=== PATIENT | male | born 1940 | race Caucasian/White ===

== ENCOUNTER 2016-06-10 10:37 | Outpatient (CLI) | payer MEDICARE, OTHER ==
[~2016-06-10] VITALS: Ht 182.9 cm; Wt 98.4 kg
[~2016-06-10 10:37] MED LIST: COREG 3.1253.125 MG PO; COUMADIN10 MG PO; FOLIC ACID1 MG PO; IMDUR30 MG PO; KLOR-CON M2020 MEQ PO; LASIX40 MG PO; LISINOPRIL2.5 MG PO; NEURONTIN 300300 MG PO; PLAVIX75 MG PO
[2016-06-10] MEDS ORDERED: COUMADIN5 MG PO (11:15)
[2016-06-10] MEDS ORDERED: COUMADIN3 MG PO (11:15)
[2016-06-10] MEDS ORDERED: ULTRAM50 MG (11:27)
[2016-06-10] MEDS ORDERED: NITROSTAT0.4 MG SL (11:28)
[2016-06-10 12:02] LABS: BASOPHILS 0.5 % (0.0-2.0); EOSINOPHILS 2.7 % (0-7); HEMATOCRIT 46.2 % (42.0-54.0); HEMOGLOBIN 14.8 g/dL (13.5-17.5); IMMATURE GRANULOCYTES 0.2 % (0-5); LYMPHOCYTES 30.5 % (15-50); MCH 32.3 pg (26.0-34.0); MCV 100.9 fL (80.0-100.0); MEAN PLATELET VOLUME 10.3 fL (7.4-10.4); MONOCYTES 11.1 % (2-11); PLATELET COUNT 100 10x3/uL (130-400); RBC 4.58 10x6/uL (4.20-6.10); RDW 16.4 % (11.5-14.5); WBC 4.1 10x3/uL (4.8-10.8)
[2016-06-10 12:14] VITALS: BP 108/73; Ht 182.9 cm; Wt 98.4 kg
[2016-06-10 12:25] LABS: ANION GAP 9.8 mmol/L (8-16); CALCIUM 9.1 mg/dL (8.5-10.1); CARBON DIOXIDE 32.5 mmol/L (21.0-32.0); CREATININE - SERUM 1.5 mg/dL (0.6-1.3); POTASSIUM - SERUM 5.3 mmol/L (3.5-5.1)
--- NOTE | 2016-06-10 12:43 | NUR ---
6904 DR. ARTHUR BEEPED. CALL RETURNED. REPORT OF ABNORMAL LAB: GLUCOSE, BUN, CR, K+, & PLATELETS, DR. ARTHUR STATES WILL JUST OPEN UP IV FLUIDS. Maximus WEBER R.N.
[2016-06-10 13:14] LABS: INR 3.3 (0.85-1.17); PROTIME 33.9 SECONDS (11.6-15.0)
== END 2016-06-10 13:47 | disposition home or self-care (01) ==
LOC: D.CATH 10:37
PROVIDERS: Internal Medicine Cardiovascular Disease
DX: I25.10 Atherosclerotic heart disease of native coronary artery without angina pectoris (principal); R06.02 Shortness of breath; I50.9 Heart failure, unspecified; Z01.810 Encounter for preprocedural cardiovascular examination; Z01.811 Encounter for preprocedural respiratory examination; Z01.812 Encounter for preprocedural laboratory examination

== ENCOUNTER 2016-06-24 10:39 | Outpatient (CLI) | payer MEDICARE, OTHER ==
[2016-06-24] VITALS (10 sets, daily range): BP systolic 107–128; BP diastolic 63–80; Ht 182.9 cm; Wt 100.9 kg
[~2016-06-24] VITALS: Ht 182.9 cm; Wt 100.9 kg
--- NOTE | ~2016-06-24 | HEMODYNAMI ---
PATIENT:YARI MCKEON MEDICAL RECORD: [id number] : 42 [id number] ADMISSION DATE: 06/24/16 Generatedon:06/25/20168:14 Patient name: YARI MCKEON Patient #: [id number] : 1940 Date of study: 06/24/2016 Page: Of Hemodynamic Procedure Report Patient Data Patient Demographics Procedure consent was obtained First Name: YARI Gender: Male Last Name: LINDA : 1940 [facility] Initial: HAIR Age: 75 year(s) Patient #: [id number] Race: SSN: [id number] Additional ID: [id number] Contact details Address: [address] [place] [address] State: [place] City: [place] Zip code: [address] Past Medical History Allergies: No known allergies Admission Admission Data Admission Date: 06/24/2016 Admission Time: 10:39 Arrival Date: 06/24/2016 Arrival Time: 13:00 Admit Source: Other Insurance Payor: Medicare Room #: D.2130 Height (in.): 72 BSA: 2.26 (m2) Height (cm.): 182.88 BMI: 31.33 (kg/m2) Weight (lbs.): 231 Weight (kg.): 104.78 Lab Results Lab Result Date: 06/24/2016 Lab Result Time: 0:00 Biochemistry Name Units Result Min Max BUN mg/dl 28 --(----)-* 7 18 Creatinine mg/dl 1.8 --(----)-* 0.6 1.3 CBC Name Units Result Min Max Hemoglobin g/dl 14.4 --(*---)-- 13.5 17.5 Procedure Procedure Types Cath Procedure Diagnostic Procedure LHC LH w/Coronaries PCI Procedure Coronary Stent Initial x2 Miscellaneous Procedures Moderate Sedation up to 45 minutes Procedure Description Procedure Date Procedure Date: 06/24/2016 Procedure Start Time: 14:01 Procedure End Time: 15:22 Procedure Staff Name Function Brooke Rodriguez RT Monitor Brooke Ryne RT Scrub Dayday Porras RN Nurse Mickey Leigh RT Scrub Alexsandra Sultana RN Nurse Akin Barbosa MD Performing Physician Indication Angina Procedure Data Cath Procedure Fluoroscopy Diagnostic fluoroscopy Total fluoroscopy Time: time: 13.3 min 13.3 min Diagnostic fluoroscopy Total fluoroscopy dose: dose: 2368 mGy 2368 mGy Contrast Material Contrast Material Type Amount (ml) Isovue 300 219 Entry Location Entry Primary Successful Side Size Upsize Upsize Entry Closure Succes sful Closure Location (Fr) 1 (Fr) 2 (Fr) Remarks Device Remarks Femoral Right 5 Fr 6 Fr Exoseal artery Short Estimated blood loss: 10 ml Diagnostic catheters Device Type Used For End Catheter Placement Cordis 5Fr JL 4.0 Left Coronary Catheter (MP) Angiography Cordis Infinity 5Fr JL 5 Left Coronary catheter Angiography Cordis 5Fr 3DRC Catheter Right Coronary (MP) Angiography Cordis 5Fr Pigtail LV Angiography Catheter (MP) Procedure Complications No complications Procedure Medications Medication Administration Route Dosage Oxygen NC 2 l/min Lidocaine 2% added to field 20 Heparin Flush Bag added to field 2 bags (1000units/500ml NS) 0.9% NaCl I.V. 100 ml/hr Versed I.V. 1 mg Fentanyl I.V. 50 mcg Versed I.V. 1 mg Fentanyl I.V. 50 mcg Heparin Bolus I.V. 8000 units Plavix P.O. 600 mg Hemodynamics Rest BSA: 2.26 (m2) HGB: 14.4 (g/dl) O2 Consumption: Estimated: 261.09 (ml/min) O2 Co nsumption indexed: Estimated:115.53 (ml/min/m) Heart Rate: 71 (bpm) Pressure Samples Time Site Value (mmHg) Purpose Heart Use Rate(bpm) 14:16 LV 103/34,37 EDP 83 14:17 LV 103/17,16 Pullback 89 14:17 AO 102/70(83) Pullback 89 Gradients Valve Time Site 1 Site 2 Mean SEP/DFP Peak To Heart Use (mmHg) (sec/min) Peak Rate (mmHg) (bpm) Aortic 14:17 LV AO 3 14 1 89 103/17,16 102/70(83) Calculations Valve P-P Mean Valve Index Valve Source Name Gradient Area Flow (cm2) Aortic 1 3 1 3 Snapshots Pre Cath Intra NCS Post Cath Vital Signs Time Heart Resp SPO2 NIBP Rhythm Pain Sedation Rate (ipm) (%) (mmHg) Status Level (bpm) 13:40:10 67 17 96 105/57(74) A-Fib 0 (11) 10(A) , No pain 13:44:12 76 19 95 113/76(91) A-Fib 0 (11) 10(A) , No pain 13:48:16 80 17 98 107/80(91) A-Fib 0 (11) 10(A) , No pain 13:52:13 85 15 96 112/75(87) A-Fib 0 (11) 10(A) , No pain 13:56:17 82 15 94 104/78(93) A-Fib 0 (11) 10(A) , No pain 14:00:18 75 16 96 115/79(89) A-Fib 0 (11) 10(A) , No pain 14:04:24 75 15 94 110/76(88) A-Fib 0 (11) 9(A) , No pain 14:08:30 86 15 94 102/70(95) A-Fib 0 (11) 9(A) , No pain 14:12:32 83 16 94 101/74(86) A-Fib 0 (11) 9(A) , No pain 14:16:33 79 16 94 110/71(82) A-Fib 0 (11) 9(A) , No pain 14:20:37 76 18 93 102/77(86) A-Fib 0 (11) 9(A) , No pain 14:24:39 84 18 92 105/69(83) A-Fib 0 (11) 9(A) , No pain 14:28:42 78 19 92 99/72(85) A-Fib 0 (11) 9(A) , No pain 14:32:44 93 17 93 101/70(92) A-Fib 0 (11) 9(A) , No pain 14:36:46 88 16 93 105/75(82) A-Fib 0 (11) 9(A) , No pain 14:40:50 90 18 94 108/72(76) A-Fib 0 (11) 9(A) , No pain 14:44:55 86 18 93 112/66(86) A-Fib 0 (11) 9(A) , No pain 14:49:03 93 19 94 99/65(86) A-Fib 0 (11) 9(A) , No pain 14:53:03 76 18 94 108/78(95) A-Fib 0 (11) 9(A) , No pain 14:56:42 81 16 95 100/75(90) A-Fib 0 (11) 9(A) , No pain 15:00:42 84 17 96 104/76(91) A-Fib 0 (11) 9(A) , No pain Medications Time Medication Route Dose Verified Delivered Reason Notes Effectiveness by by 13:45:40 Oxygen NC 2 Akin Buffie used for l/min Kristian Sultana RN procedure 13:45:48 Lidocaine 2% added 20ml Akin Akin for local to vial Kristian Barbosa MD anesthetic field 13:45:54 Heparin Flush added 2 Akin Akin used for Bag to bags Kristian Barbosa MD procedure (1000units/500ml field NS) 13:46:03 0.9% NaCl I.V. 100 Akin Buffie Per physician ml/hr Kristian Sultana RN 13:57:44 Versed I.V. 1 mg Akin Buffie for sedation Kristian Sultana RN 13:57:50 Fentanyl I.V. 50 Akin Buffie for sedation mcg Kristian Sultana RN 14:06:19 Versed I.V. 1 mg Akin Buffie for sedation Kristian Sultana RN 14:06:24 Fentanyl I.V. 50 Akin Buffie for sedation mcg Kristian Sultana RN 14:23:19 Heparin Bolus I.V. 8,000 Akin Buffie for verifi ed units Kristian Sultana RN anticoagulation with dr barbosa. 14:55:09 Plavix P.O. 600 Akin Buffie for mg Kristian Sultana RN anticoagulation Procedure Log Time Note 13:00:18 Alexsandra Sultana RN sent for patient. Start room use. 13:05:57 Informed consent obtained and on chart 13:06:06 Diagnostic Cath Status : Elective 13:06:34 Indication : Angina 13:06:48 Admit Source: Other 13:06:56 Arrival Date: 06/24/2016 1:00:00 PM 13:07:03 Insurance Payor : Medicare 13:07:13 Patient Height : 72 inches 13:07:18 Patient Weight : 231 lbs 13:10:06 Lab Result : Hemoglobin 14.4 g/dl 13:10:06 Lab Result : Creatinine 1.8 mg/dl 13:10:06 Lab Result : BUN 28 mg/dl 13:15:25 Time tracking: Regular hours 13:15:31 Plan of Care:Hemodynamics will remain stable., Cardiac rhythm will remain stable., Comfort level will be maintained., Respiratory function will remain adequate., Patient/ family verbilizes understanding of procedure., Procedure tolerated without complication., Recovers from procedure without complications.. 13:33:32 Patient received from Outpatients to CCL 1 Alert and oriented. Tansferred to table in Supine position. 13:33:33 Correct patient and procedure confirmed by team. 13:33:33 Warm blankets applied, and bel hugger turned on for patient comfort. 13:33:38 ECG and BP/O2 sat monitors applied to patient. 13:35:51 Full Disclosure recording started 13:39:03 Vital chart was started 13:41:15 Rhythm: atrial fibrillation 13:41:31 H&P Date Dictated: 05/27/2016 Within 30 days and on chart., H&P Addendum completed by physician on day of procedure. (MUST COMPLETE FOR ALL OUTPATIENTS). 13:41:32 Pre-procedure instructions explained to patient. 13:41:33 Pre-op teaching completed and patient verbalized understanding. 13:41:34 Family in patients room. 13:41:44 Patient NPO since Midnight. 13:41:59 Patient allergic to No known allergies 13:42:03 Is the patient allergic to Iodine/contrast media? No. 13:42:05 Is patient on blood thinner?Yes 13:42:12 ACC The patient was administered the following blood thiners within the last 24 hours: None 13:42:15 Patient diabetic? No. 13:42:21 Previous problem with sedation/anesthesia? No ? 13:42:22 Snore? Yes 13:42:23 Sleep apnea? No 13:42:24 Deviated septum? No 13:42:25 Opens mouth fully? Yes 13:42:26 Sticks out tongue? Yes 13:42:28 Airway obstruction? No ? 13:42:32 Dentures? Yes Out 13:42:38 Pre procedure: right dorsailis pedis pulse Doppler 13:42:43 Patient pain scale 0/10 ?. 13:42:48 IV patent on arrival in left hand with 0.9% NaCl at O. 13:42:52 Lab results completed and on chart. 13:42:56 Right groin area was prepped with chlora-prep and draped in sterile fashion 13:42:57 Sharps counted by scrub and verified by R.N. 13:42:57 Alarms reviewed by R. N. 13:44:27 Use device set Femoral Dx 13:44:28 Bag Decanter opened to sterile field. 13:44:28 Acist Syringe opened to sterile field. 13:44:29 Medline Cath Pack opened to sterile field. 13:44:30 St Thong 260cm J .035 wire opened to sterile field. 13:44:30 Terumo 5Fr [place] Sheath opened to sterile field. 13:44:31 Acist Hand Control opened to sterile field. 13:44:32 Cordis Infinity 5Fr Multipack catheter opened to sterile field. 13:44:32 Acist Manifold opened to sterile field. 13:44:34 Tegaderm 4 x 4 opened to sterile field. 13:45:40 Oxygen 2 l/min NC was given by Alexsandra Sultana RN; used for procedure; 13:45:48 Lidocaine 2% 20ml vial added to field was given by Akin Barbosa MD; for local anesthetic; 13:45:54 Heparin Flush Bag (1000units/500ml NS) 2 bags added to field was given by Akin Barbosa MD; used for procedure; 13:46:03 0.9% NaCl 100 ml/hr I.V. was given by Alexsandra Sultana RN; Per physician; 13:47:26 Baseline sample Acquired. 13:54:21 Zero performed for pressure channel P1 13:57:18 Final Timeout: patient, procedure, and site verified with staff and physician. All members of the team are in agreement. 13:57:20 Right groin site verified by team. 13:57:23 Physical assessment completed. ASA score P 2 - A patient with mild systemic disease as per Akin Barbosa MD. 13:57:27 Sedation plan: IV Moderate Sedation Versed, Fentanyl 13:57:44 Versed 1 mg I.V. was given by Buffie Sultana RN; for sedation; 13:57:50 Fentanyl 50 mcg I.V. was given by Alexsandra Sultana RN; for sedation; 14:01:12 Procedure started. 14:01:42 Local anesthetic to right femoral artery with Lidocaine 2% by Akin Barbosa MD.INITIAL ACCESS ONLY 14:06:19 Versed 1 mg I.V. was given by Alexsandra Sultana RN; for sedation; 14:06:24 Fentanyl 50 mcg I.V. was given by Alexsandra Sultana RN; for sedation; 14:07:04 A 5 Fr sheath was inserted into the Right Femoral artery 14:07:31 A Cordis 5Fr JL 4.0 Catheter (MP) was advanced over the wire and used for Left Coronary Angiography. 14:08:51 Catheter removed. 14:09:48 A Cordis Infinity 5Fr JL 5 catheter was advanced over the wire and used for Left Coronary Angiography. 14:13:28 Catheter removed. 14:13:51 A Cordis 5Fr 3DRC Catheter (MP) was advanced over the wire and used for Right Coronary Angiography. 14:15:20 Catheter removed. 14:16:16 A Cordis 5Fr Pigtail Catheter (MP) was advanced over the wire and used for LV Angiography. 14:16:48 LV gram done using BLACKWELL 14:16:50 LV hemodynamics recorded. 14:16:53 Injector settings: Ml/sec: 10, Volume: 20, 14:17:30 EF : 15 % 14:17:45 Catheter removed. 14:18:06 PetBox BasixCompak Inflation Kit opened to sterile field. 14:18:06 White BMW [place] 2 J-tip 300cm 0.014 guide wir opened to sterile field. 14:18:19 High Pressure Extension Tubing (Kristian) opened to sterile field. 14:18:30 Cordis 6FR XBLAD 4.0 guide catheter opened to sterile field. 14:20:12 Terumo 6Fr [place] Sheath opened to sterile field. 14:21:00 Sheath upsized to a 6 Fr Short. 14:22:02 6 Fr XBLAD 4.0 guide catheter was inserted over the wire 14:23:19 Heparin Bolus 8,000 units I.V. was given by Alexsandra Sultana RN; for anticoagulation; verified with dr barbosa. 14:30:32 BMW wire advanced. 14:32:02 Inflation number: 1 A [place] Sci Hinds 2.0 X 15 balloon was prepped and advanced across the Ramus, then inflated to 10 SUYAPA for 0:14 (min:sec). 14:32:27 Inflation number: 2 The [place] Sci Hinds 2.0 X 15 balloon was reinflated across the Ramus, to 10 SUYAPA for 0:13 (min:sec). 14:33:28 Balloon removed over the wire. 14:36:16 Inflation Number: 3 A Medtronic Integrity 2.25 X 18 stent was prepped and advanced across the Ramus. The stent was deployed at 13 SUYAPA for 0:17 (min:sec). 14:37:33 Stent catheter was removed intact over wire. 14:37:37 Wire removed. 14:37:45 [place] Sci Luge Straight 300cm 0.014 guide wire opened to sterile field. 14:37:58 Luge to Diag wire advanced. 14:43:03 Inflation number: 1 The stent balloon was then re-inflated across the 1st Diag to 8 SUYAPA for 0:00 (min:sec). 14:43:28 Inflation number: 2 The stent balloon was then re-inflated across the 1st Diag to 10 SUYAPA for 0:10 (min:sec). 14:43:47 Inflation number: 3 The stent balloon was then re-inflated across the 1st Diag to 10 SUYAPA for 0:10 (min:sec). 14:48:39 Inflation Number: 4 A Medtronic Integrity 2.25 X 14 stent was prepped and advanced across the 1st Diag. The stent was deployed at 12 SUYAPA for 0:27 (min:sec). 14:49:26 Stent catheter was removed intact over wire. 14:49:27 Wire removed. 14:49:28 Guide catheter removed. 14:49:39 Cordis 6Fr Exoseal opened to sterile field. 14:50:59 Sheath removed intact; hemostasis achieved with Exoseal to the Right Femoral artery. 14:51:13 Procedure ended.(Physican Out) :51:28 Fluoroscopy time 13.30 minutes. 14:51:34 Fluoroscopy dose: 2368 mGy 14:51:34 Flurop Dose total: 2368 14:51:38 Contrast amount:Isovue 300 219ml. 14:51:40 Sharps counted by scrub and verified by R.N. 14:51:42 Insertion/operative site no bleeding no hematoma. 14:51:46 Post-op/insertion site Right Femoral artery dressed using a 4 x 4 and Tegaderm. 14:51:49 Post right femoral artery:stable, clean and dry 14:51:51 Post Procedure Pulses reassessed and unchanged 14:51:56 Post-procedure physical assessment completed. ASA score P 2 - A patient with mild systemic disease as per Akin Barbosa MD. 14:51:59 Post procedure rhythm: unchanged. 14:52:02 Estimated blood loss: 10 ml 14:52:04 Post procedure instruction explained to patient.Patient verbalizes understanding. 14:52:04 Patient needs reinforcement of post procedure teaching. 14:52:26 Procedure type changed to Cath procedure, Diagnostic procedure, LHC, LHC w/Coronaries, PCI procedure, Coronary Stent Initial x2, Miscellaneous Procedures, Moderate Sedation up to 45 minutes 14:52:38 Procedure Complication : No complications 14:52:40 See physician's report for complete and final results. 14:55:09 Plavix 600 mg P.O. was given by Alexsandra Sultana RN; for anticoagulation; 14:56:23 Procedure and supply charges have been captured, reviewed, submitted and are correct. 15:00:57 Vital chart was stopped 15:22:38 Report given to PCU. 15:22:41 Patient transfered to PCU with Bed. 15:22:47 Procedure ended. 15:22:47 Full Disclosure recording stopped 15:22:55 End room use (Document Last) Intervention Summary Intervention Notes Time ActionType Lesion and Equipment Action# Pressure Duration Attributes Used 14:32:02 Inflate Ramus [place] 1 10 00:14 balloon Sci Hinds 2.0 X 15 balloon 14:32:27 Reinflate Ramus [place] 2 10 00:13 balloon Sci Hinds 2.0 X 15 balloon 14:36:16 Place stent Ramus Medtronic 3 13 00:17 Integrity 2.25 X 18 stent 14:43:03 Reinflate 1st Diag Medtronic 1 8 00:00 stent Integrity balloon 2.25 X 18 stent 14:43:28 Reinflate 1st Diag Medtronic 2 10 00:10 stent Integrity balloon 2.25 X 18 stent 14:43:47 Reinflate 1st Diag Medtronic 3 10 00:10 stent Integrity balloon 2.25 X 18 stent 14:48:39 Place stent 1st Diag Medtronic 4 12 00:27 Integrity 2.25 X 14 stent Device Usage Item Name Manufacture Quantity Catalog Number Hospital Part Current Mini mal Lot# / Charge Number Stock Stock Serial# Code Acist Acist 1 02142 283362 803247 254742 20 Syringe Medical Systems Inc Bag Microtek 1 2002S 706083 43993 199118 5 [employer] Medline Cardinal 1 [id number] 937957 39921 842082 5 Cath Pack Health Terumo 5Fr Terumo 1 [id number] 926613 524534 455734 [address] [place] [address] Th[address] St Thong 1 526032 766985 354968 753468 30 260cm J .035 wire Acist Hand Acist 1 19957 888804 748523 553943 5 Control Medical Systems Inc Acist Acist 1 31991 540137 080364 353798 5 Manifold Medical Systems Inc Cordis Cardinal 1 [id number] 600031 66381 590394 30 Infinity Health 5Fr Multipack catheter Tegaderm 4 3M 1 1626W 259081 600569 384688 5 x 4 Cordis 5Fr Cardinal 1 341529 5 JL 4.0 Health Catheter (MP) Cordis Cardinal 1 [id number] 660492 149487 644447 5 Infinity Health 5Fr JL 5 catheter Cordis 5Fr Cardinal 1 052589 5 3DRC Health Catheter (MP) Cordis 5Fr Cardinal 1 605076 5 Pigtail Health Catheter (MP) White BMW White 1 [id number] 190753 506027 095188 5 [place] 2 Vascular J-tip 300cm 0.014 guide wir Merit Merit 1 [id number] 764303 033307 790455 15 [employer] Health[employer] Medical Inflation Kit High Merit 1 [id number] 603885 24346 264755 10 Pressure Medical Extension Tubing (Barbosa) Cordis 6FR Cardinal 1 [id number] 762118 904965 606697 3 XBLAD 4.0 Health guide catheter Terumo 6Fr Terumo 1 [id number] 291419 049770 778705 40 [place] Sheath [place] Sci [place] 1 [id number] 592248 374986 506505 1 [id number] Eco Dream Venture 2.0 X 15 balloon Medtronic Medtronic 1 [id number] 388108 773339 126530 2 [id number] Integrity 2.25 X 18 stent [place] Sci [place] 1 [id number] 482679 428723 644288 5 Integris [facility] Scientific Straight 300cm 0.014 guide wire Medtronic Medtronic 1 [id number] 670931 265704 699276 5 [id number] Integrity 2.25 X 14 stent Cordis 6Fr Cardinal 1 [id number] 991845 874273 695319 [id number] [facility] Health Signature Audit Solo Stage Time Signature Unsigned Intra-Procedure 06/24/2016 Brooke Cox Counts 3:25:26 PM Counts RT(R) RT(R) 06/25/2016 8:13:47 AM Intra-Procedure 06/25/2016 Brooke 8:14:34 AM Counts RT(R) Signatures Monitor : Brooke Signature : Counts RT Date : Time : [address] [address]
[~2016-06-24 10:39] MED LIST changes: +COUMADIN3 MG PO; +COUMADIN5 MG PO; +NITROSTAT0.4 MG SL; +ULTRAM50 MG
[2016-06-24 11:42] LABS: BASOPHILS 1.1 % (0.0-2.0); EOSINOPHILS 4.7 % (0-7); HEMATOCRIT 47.4 % (42.0-54.0); HEMOGLOBIN 15.4 g/dL (13.5-17.5); LYMPHOCYTES 36.1 % (15-50); MCH 32.8 pg (26.0-34.0); MCHC 32.5 g/dL (31.0-37.0); MCV 101.1 fL (80.0-100.0); MEAN PLATELET VOLUME 11.4 fL (7.4-10.4); MONOCYTES 11.8 % (2-11); NEUTROPHILS 46.3 % (40-80); RBC 4.69 10x6/uL (4.20-6.10); RDW 16.3 % (11.5-14.5); WBC 3.8 10x3/uL (4.8-10.8)
[2016-06-24 11:43] LABS: PLATELET COUNT 76 10x3/uL (130-400)
[2016-06-24 11:57] LABS: ANION GAP 11.7 mmol/L (8-16); CALCIUM 9.7 mg/dL (8.5-10.1); CARBON DIOXIDE 30.1 mmol/L (21.0-32.0); CREATININE - SERUM 1.8 mg/dL (0.6-1.3); POTASSIUM - SERUM 3.8 mmol/L (3.5-5.1)
[2016-06-24 12:36] LABS: INR 1.85 (0.85-1.17); PROTIME 21.3 SECONDS (11.6-15.0)
--- NOTE | 2016-06-24 15:47 | NUR ---
TRANSFER FROM SECTION CUTTER BY BED. OREINTED TO ROOM. CALL LIGHT IN REACH. WILL CONT. PLAN OF CARE.
--- NOTE | 2016-06-24 15:49 | NUR ---
TRANSFER FROM LABORATORY APPARATUS GLASS BLOWER BY BED. VS WNL. RIGHT GROIN STABLE WITHOUT BLEEDING OR HEMATOMA NOTED. WILL
--- NOTE | 2016-06-24 19:15 | NUR ---
REPORT RECEIVED AND CARE OF PT ASSUMED. PT UP IN ROOM STATING HE NEEDS TO USE RESTROOM WHEN ENTERED ROOM. EXPLAINED THAT HE WASN'T SUPPOSED TO BE OUT OF BED YET...POSITIONED IN BED FOR COMFORT AND PROVIDED BEDPAN FOR PT TO HAVE BM.
--- NOTE | 2016-06-24 21:44 | NUR ---
HS MEDICATIONS GIVEN TO INCLUDE TRAMADOL PER PRN ORDER AND GABAPENTIN. WILL CONTINUE TO MONITOR FOR NEEDS.
--- NOTE | 2016-06-24 22:05 | NUR ---
PT HAD RUN OF 14 V-TAC. BACK IN CONTROLLED A-FIB AT THIS TIME, SLEEPING WITH UNLABORED BREATHING WITH PULSE OF 82. WILL CONTINUE TO MONITOR CLOSLEY.
--- NOTE | 2016-06-24 22:54 | NUR ---
PT HAD RUN OF 14 V TACH AND NOW IS IN FLUTTER. CALLED DR ANGELES TO NOTIFY AND HE STATED THAT THAT'S OK. WILL CONTINUE TO MONITOR FRANCISCO.
[2016-06-25 00:21] VITALS: BP 119/72
[2016-06-25 08:40] VITALS: BP 103/71
[2016-06-25 12:25] VITALS: BP 112/71
[2016-06-25] MEDS ORDERED: NEURONTIN 300300 MG PO (14:24)
[2016-06-25] MEDS ORDERED: PLAVIX75 MG PO (14:25)
--- NOTE | 2016-06-25 15:26 | NUR ---
MEDS ADMINISTERED WITHOUT DIFFICULTY PER ORDERS. DISCHARGE PAPERS SIGNED. WHEELCHAIR CALLED FOR TRANSPORT TO PRIVATE VEHICLE. SALINE LOCK DC'D WITH CATHETER INTACT.
--- NOTE | 2016-06-25 15:30 | NUR ---
PATIENT DISCHARGED HOME WITH FRIEND PER PRIVATE VEHICLE. DISCHARGE INSTRUCTIONS AND PRESCRIPTION GIVEN TO PATIENT. PERSONAL BELONGINGS RETURNED TO PATIENT. TAKEN TO PRIVATE VEHICLE VIA WHEELCHAIR. WRITTEN AND VERBAL DISCHAGE INSTRUCTIONS GIVEN TO PATIENT. CONDITION STABLE AT TIME OF DISCHARGE.
--- NOTE | 2016-07-29 08:17 | OP ---
PATIENT NAME: YARI MCKEON MEDICAL RECORD: [id number] :42 LOCATION:D.CAT ADMISSION DATE: SURGEON: DILCIA ARTHUR M.D. DATE OF OPERATION: 06/24/2016 Catheterization Report PROCEDURES PERFORMED: 1. Selective coronary angiography. 2. Left heart catheterization with ventriculogram. 3. PTCA and stent placed to the diagonal branch. 4. PTCA and stent placement to the ramus branch. INDICATION: A 75-year-old gentleman presents with symptoms of angina. Recent Cardiolite stress testing revealed an inferior wall defect. EQUIPMENT USED: Diagnostic 5-[place] JL5, Brayden right, pigtail catheter. INTERVENTION: A 6-[place] XB LAD 4.0 guide, BMW guide wire, 2.0 x 15 mm Titus balloon, 2.25 x 14 mm Integrity stent, 2.25 x 18 mm Integrity stent. TECHNIQUE: A 5-[place] sheath was inserted in retrograde fashion in the right common femoral artery. Next, selective coronary angiography was performed in standard view using 5-[place] JL5 and Brayden right. Left heart catheterization was performed using pigtail catheter. CORONARY ANATOMY: 1. Left main: Left main trunk is moderate in caliber. It gives rise to the LAD, circumflex, and ramus branches. It has no significant obstruction. 2. LAD: This vessel is 100% occluded in the proximal segment just beyond the origin of the first diagonal branch. 3. Ramus: This vessel is moderate in caliber. It has 2 sequential 90% stenoses in the proximal segment. 4. Circumflex: This vessel is large in caliber. It gives rise 2 large lateral branches. These vessels have mild irregularities throughout their course, but nothing worse than 30%. 5. Right coronary artery: This vessel is large in caliber and dominant. The proximal mid vessel has been stented. The stents are patent. There is a smooth 40% stenosis in the mid segment. The distal vessel collateralizes the LAD. 6. Left ventricle: Left ventricle is severely dilated. There is severe LV dysfunction noted. Estimated ejection fraction is 15%. DESCRIPTION OF INTERVENTION: A 6-[place] sheath was inserted in retrograde fashion in the right common femoral artery. Next, 100 units per kilogram of heparin was infused. A 6-[place] XB LAD guide was advanced and engaged in the left main coronary artery. Next, a BMW guidewire was placed into the ramus branch. The vessel was predilated 2.0 x 15 mm Titus balloon at 10 atmospheres. Next, a 2.25 x 18 mm Integrity stent was placed at the origin of the vessel and deployed at 12 atmospheres. Injection shows stent to be widely patent with 0% residual stenosis. There is marked improvement in distal flow. At this point, the BMW guidewire was placed in the distal diagonal branch. The origin was predilated with a 2.0 x 15 mm Titus balloon at 10 atmospheres. Next, a 2.25 x 14 mm Integrity stent was placed at the origin of the diagonal branch and deployed at 12 atmospheres. Injection revealed this stent to be OPERATIVE REPORT [id number] YARI MCKEON widely patent with 0% residual stenosis. At this point, the wire and guide were removed. IMPRESSION: 1. Successful percutaneous transluminal coronary angioplasty and stenting to the ramus branch with 0% residual stenosis. 2. Successful percutaneous transluminal coronary angioplasty and stenting to the diagonal branch with 0% residual stenosis. TRANSINT:[id number] Voice Confirmation ID: [id number] DOCUMENT ID: [id number] DILCIA ARTHUR M.D. at 0817 CC: [id number] DICTATION DATE: 06/24/161458 HYGIENE TEACHER: 06/24/162138 DEP CLI 06/25/16 [address] [id number] [place] [address]
== END 2016-06-25 15:30 | disposition home or self-care (01) ==
LOC: D.CATH 10:39 → D.M2 15:19 → D.CATH 06-25 15:30
PROVIDERS: Internal Medicine Cardiovascular Disease
DX: I25.119 Atherosclerotic heart disease of native coronary artery with unspecified angina pectoris (principal)

== ENCOUNTER 2016-06-28 04:26 | Inpatient (IN) | payer MEDICARE, OTHER ==
[~2016-06-28] VITALS: Ht 182.9 cm; Wt 104.5 kg
--- NOTE | ~2016-06-28 | HEMODYNAMI ---
PATIENT:YARI MCKEON MEDICAL RECORD: [id number] : [birth year] [facility] [id number] ADMISSION DATE: 06/28/16 Generatedon:06/30/201611:46 Patient name: YARI MCKEON Patient #: [id number] : 1940 Date of study: 06/30/2016 Page: Of Hemodynamic Procedure Report Patient Data Patient Demographics Procedure consent was obtained First Name: YARI Gender: Male Last Name: LINDA : 1940 [facility] Initial: GENE Age: 75 year(s) Patient #: [id number] Race: SSN: [id number] Additional ID: [id number] Contact details Address: [address] [place] [address] State: [place] City: [place] Zip code: [address] Past Medical History Allergies: No known allergies Admission Admission Data Admission Date: 06/28/2016 Admission Time: 16:31 Room #: 2122 Lab Results Lab Result Date: 06/30/2016 Lab Result Time: 0:00 Biochemistry Name Units Result Min Max BUN mg/dl 26 --(----)-* 7 18 Creatinine mg/dl 1.5 --(----)-* 0.6 1.3 CBC Name Units Result Min Max Hemoglobin g/dl 13.2 -*(----)-- 13.5 17.5 Procedure Procedure Types Cath Procedure Diagnostic Procedure LHC Coronaries only PCI Procedure Coronary Stent Initial Procedure Description Procedure Date Procedure Date: 06/30/2016 Procedure Start Time: 11:29 Procedure End Time: 11:40 Procedure Staff Name Function Placido El MD Performing Physician Miguelito Hartman RT Scrub Alexsandra Sultana RN Nurse Leonard Jenkins RT Automotive Project Engineer Mickey Leigh RT Monitor Procedure Data Cath Procedure Fluoroscopy Diagnostic fluoroscopy Total fluoroscopy Time: 2.4 time: 2.4 min min Diagnostic fluoroscopy Total fluoroscopy dose: 326 dose: 326 mGy mGy Contrast Material Contrast Material Type Amount (ml) Isovue 300 47 Entry Location Entry Primary Successful Side Size Upsize Upsize Entry Closure Succes sful Closure Location (Fr) 1 (Fr) 2 (Fr) Remarks Device Remarks Femoral Left 6 Fr Vascade artery Short Closure System Diagnostic catheters Device Type Used For End Catheter Placement Cordis 5Fr JL 4.0 Left Coronary Catheter (MP) Angiography Procedure Complications No complications Procedure Medications Medication Administration Route Dosage Oxygen NC 3 l/min Lidocaine 2% added to field 20 Heparin Flush Bag added to field 2 bags (1000units/500ml NS) 0.9% NaCl I.V. 100 ml/hr Versed I.V. 1 mg Fentanyl I.V. 50 mcg Heparin Bolus I.V. 4000 units Versed I.V. 1 mg Fentanyl I.V. 50 mcg Hemodynamics Rest HGB: 13.2 (g/dl) Heart Rate: 83 (bpm) Snapshots Pre Cath Intra NCS Post Cath Vital Signs Time Heart Resp SPO2 etCO2 QG0uqso NIBP (mmHg) Rhythm Pain Sedation Rate (ipm) (%) (mmHg) (mmHg) Status Level (bpm) 11:27:31 78 22 95 0 0 127/84(96) NSR 0 (11) 10(A) , No pain 11:31:41 87 20 94 0 0 107/84(96) NSR 0 (11) 10(A) , No pain 11:35:43 94 18 94 0 0 122/84(107) NSR 0 (11) 9(A) , No pain 11:39:53 96 18 94 0 0 122/75(94) NSR 0 (11) 9(A) , No pain 11:44:17 97 18 94 0 0 115/79(97) NSR 0 (11) 10(A) , No pain Medications Time Medication Route Dose Verified Delivered Reason Notes Effectiveness by by 11:22:27 Oxygen NC 3 Placido Buffie used for l/min Nikko Sultana RN procedure 11:22:33 Lidocaine 2% added 20ml Placido Buffie used for to vial Nikko Sultana jump iron machine presser field 11:22:40 Heparin Flush added 2 Placido Buffie used for Bag to bags Nikko Sultana RN procedure (1000units/500ml field NS) 11:22:49 0.9% NaCl I.V. 100 Placido Buffie Per physician ml/hr Nikko Sultana RN 11:30:00 Fentanyl I.V. 50 Placido Upton for sedation mcg Nikko Sultana RN 11:30:55 Versed I.V. 1 mg Placido Upton for sedation Nikko Sultana RN 11:33:28 Heparin Bolus I.V. 4000 Placido Upton for verifi ed units Nikko Sultana RN anticoagulation with dr el 11:35:11 Versed I.V. 1 mg Placido Upton for sedation Nikko Sultana RN 11:35:19 Fentanyl I.V. 50 Placido Upton for sedation mcg Nikko Sultana RN Procedure Log Time Note 10:40:52 Leonard Jenkins RT(R) sent for patient. Start room use. 10:59:46 ACC Patient presents with Unstable Angina CCS Anginal Class 3--Marked limitation of physical activity, angina occurs with ordinary activity.. 10:59:48 Diagnostic Cath status Urgent 11:00:09 Time tracking: Regular hours 11:00:15 Plan of Care:Hemodynamics will remain stable., Cardiac rhythm will remain stable., Comfort level will be maintained., Respiratory function will remain adequate., Patient/ family verbilizes understanding of procedure., Procedure tolerated without complication., Recovers from procedure without complications.. 11:03:16 Lab Result : Hemoglobin 13.2 g/dl 11:03:16 Lab Result : Creatinine 1.5 mg/dl 11:03:16 Lab Result : BUN 26 mg/dl 11:05:22 Informed consent obtained and on chart 11:22:27 Oxygen 3 l/min NC was given by Alexsandra Sultana RN; used for procedure; 11::33 Lidocaine 2% 20ml vial added to field was given by Alexsandra Sultana RN; used for procedure; 11:22:40 Heparin Flush Bag (1000units/500ml NS) 2 bags added to field was given by Alexsandra Sultana RN; used for procedure; 11:22:49 0.9% NaCl 100 ml/hr I.V. was given by Alexsandra Sultana RN; Per physician; 11:26:32 Patient received from PCU to CCL 1 Alert and oriented. Tansferred to table in Supine position. 11:26:33 Warm blankets applied, and bel hugger turned on for patient comfort. 11:26:33 Correct patient and procedure confirmed by team. 11:26:33 ECG and BP/O2 sat monitors applied to patient. 11:26:34 Vital chart was started 11:26:35 Baseline sample Acquired. 11::38 Rhythm: sinus rhythm 11::39 Full Disclosure recording started 11:26:59 H&P Date Dictated: 06/28/2016 Within 30 days and on chart.. 11:27:11 Pre-procedure instructions explained to patient. 11:27:11 Pre-op teaching completed and patient verbalized understanding. 11:27:19 Family unavailable. 11:27:21 Patient NPO since Midnight. 11:27:31 Patient allergic to No known allergies 11:27:33 Is the patient allergic to Iodine/contrast media? No. 11:27:36 Is patient on blood thinner?Yes 11::39 ACC The patient was administered the following blood thiners within the last 24 hours: ACCPlavix 11:27:41 Patient diabetic? No. 11:27:42 ----Pre-sedation anethsthesia assessment.---- 11:27:43 Previous problem with sedation/anesthesia? No ? 11:27:44 Snore? Yes 11:27:46 Sleep apnea? No 11:27:47 Deviated septum? No 11:27:50 Opens mouth fully? Yes 11:27:51 Sticks out tongue? Yes 11:27:54 Airway obstruction? No ? 11:27:56 Dentures? No ? 11:27:59 Pre procedure: left dorsailis pedis pulse 1+ Palpable, but thready & weak; easily obliterated 11:28:04 Patient pain scale 0/10 ?. 11:28:10 IV patent on arrival in right forearm with 0.9% NaCl at 10ml/hr. 11:28:14 Lab results completed and on chart. 11:28:17 Left groin area was prepped with chlora-prep and draped in sterile fashion 11:28:18 Alarms reviewed by R. N. 11:28:19 Sharps counted by scrub and verified by R.N. 11:28:20 Physician arrived 11:28:21 --------ALL STOP TIME OUT------ 11::22 Final Timeout: patient, procedure, and site verified with staff and physician. All members of the team are in agreement. 11:28:24 Left groin site verified by team. 11:28:27 Physical assessment completed. ASA score P 2 - A patient with mild systemic disease as per Placido El MD. 11::31 Sedation plan: IV Moderate Sedation Versed, Fentanyl 11:28:51 Use device set Femoral Dx 11:28:53 Acist Syringe opened to sterile field. 11:28:53 Bag Decanter opened to sterile field. 11::54 Medline Cath Pack opened to sterile field. 11:28:55 St Thong 260cm J .035 wire opened to sterile field. 11:28:57 Acist Hand Control opened to sterile field. 11:28:57 Acist Manifold opened to sterile field. 11:29:02 Diagnostic Infinity 5Fr Multipack catheter opened to sterile field. 11:29:03 Tegaderm 4 x 4 opened to sterile field. 11:29:12 Terumo 6Fr [place] Sheath opened to sterile field. 11:29:18 Procedure started. 11:29:50 Local anesthetic to left femerol artery with Lidocaine 2% by Placido El MD.INITIAL ACCESS ONLY 11:29:58 A 6 Fr Short sheath was inserted into the Left Femoral artery 11:30:00 Fentanyl 50 mcg I.V. was given by Alexsandra Sultana RN; for sedation; 11:30:17 Zero performed for pressure channel P1 11:30:21 Zero performed for pressure channel P1 11:30:24 Zero performed for pressure channel P1 11:30:27 Zero performed for pressure channel P1 11:30:29 Zero performed for pressure channel P1 11:30:55 Versed 1 mg I.V. was given by Alexsandra Sultana RN; for sedation; 11:30:58 [employer] Launcher 6Fr AR 2.0 guide catheter opened to sterile field. 11:31:43 A [email or web address] 5Fr JL 4.0 Catheter () was advanced over the wire and used for Left Coronary Angiography. 11:32:14 LCA angiography performed. 11:32:16 Catheter removed. 11:32:32 6 Fr AR 2 guide catheter was inserted over the wire 11:33:28 Heparin Bolus 4000 units I.V. was given by Alexsandra Sultana RN; for anticoagulation; verified with dr el 11:33:33 ACC PCI Site: mRCA has 75% stenosis. 11:33:36 ACC Pre-intervention XANDER Flow is 3. 11:33:44 WHISPER wire advanced. 11:33:51 Procedure type changed to Cath procedure, Diagnostic procedure, LHC, Coronaries only, PCI procedure, Coronary Stent Initial 11:35:11 Versed 1 mg I.V. was given by Alexsandra Sultana RN; for sedation; 11:35:19 Fentanyl 50 mcg I.V. was given by Alexsandra Sultana RN; for sedation; 11:36:27 Inflation Number: 1 A 7digitaltronic Integrity 3.5 X 18 stent was prepped and advanced across the Mid RCA. The stent was deployed at 19 SUYAPA for 0:10 (min:sec). 11:36:37 Contrast amount:Isovue 300 47ml. 11:36:48 Vascade 6/7 Fr Closure Device opened to sterile field. 11:36:58 Sheath removed intact; hemostasis achieved with Vascade Closure System to the Left Femoral artery. 11:37:01 Procedure ended.(Physican Out) 11:37:55 Fluoroscopy time 02.40 minutes. 11:38:01 Fluoroscopy dose: 326 mGy 11:38:01 Flurop Dose total: 326 11:38:03 Sharps counted by scrub and verified by R.N. 11:38:10 Insertion/operative site no bleeding no hematoma. 11:38:13 Post-op/insertion site Left Femoral artery dressed using a 4 x 4 and Tegaderm. 11:38:17 Post left femerol artery:stable 11:38:19 Post Procedure Pulses reassessed and unchanged 11:38:21 Post procedure: left dorsailis pedis pulse 1+ Palpable, but thready & weak; easily obliterated. 11:38:25 Post procedure rhythm: sinus rhythm 11:38:27 Post procedure instruction explained to patient.Patient verbalizes understanding. 11:39:00 White Whisper J 300cm 0.014 guide wire opened to sterile field. 11:39:00 Howard BasixCompak Inflation Kit opened to sterile field. 11:39:50 Procedure and supply charges have been captured, reviewed, submitted and are correct. 11:39:54 Procedure Complication : No complications 11:39:57 Vital chart was stopped 11:39:57 See physician's report for complete and final results. 11:39:59 Report given to PCU. 11:40:08 Patient transfered to PCU with Bed. 11:40:11 Procedure ended. 11:40:11 Full Disclosure recording stopped 11:40:13 End room use (Document Last) 11:40:13 End room use (Document Last) Intervention Summary Intervention Notes Time ActionType Lesion and Equipment Action# Pressure Duration Attributes Used 11:36:27 Place stent Mid RCA Medtronic 1 19 00:10 Integrity 3.5 X 18 stent Device Usage Item Name Manufacture Quantity Catalog Hospital Part Current Minima l Lot# / Number Charge Number Stock Stock Serial# Code Acist Acist 1 [id number] [id number] 068293 767046 20 Syringe Medical Systems Inc Bag Microtek 1 2002S 387899 26051 641524 5 Birds Eye Systems Inc. Medline Cardinal 1 [id number] 539802 70437 090999 [address] Thong 1 572002 175677 962448 754535 30 260cm J .035 wire Acist Hand Acist 1 68841 496249 673190 715033 5 Control Medical Systems Inc Acist Acist 1 07115 012072 087610 676574 5 Manifold Medical Systems Inc Diagnostic Cardinal 1 [id number] 482138 05962 498973 30 Paragon 28 5Fr Multipack catheter Tegaderm 4 3M 1 1626W 280914 760084 331149 5 x 4 Terumo 6Fr Terumo 1 PCG273 141226 751951 916204 40 [place] Sheath Medtronic Medtronic 1 [id number] 952831 92565 347805 1 Launcher 6Fr AR 2.0 guide catheter Cordis 5Fr Cardinal 1 986989 5 JL 4.0 Health Catheter (MP) Medtronic Medtronic 1 [id number] 464702 242664 1 [id number] Integrity 3.5 X 18 stent Vascade 6/7 Cardiva 1 [id number] 360870 176879 746861 5 Fr Closure Medical, Device Inc. White White 1 [id number] 086454 729020 032175 5 Whisper J Vascular 300cm 0.014 guide wire Merit Merit 1 [id number] 391393 203574 828937 15 [employer] Medical Inflation Kit Signature Audit [place] Stage Time Signature Unsigned Intra-Procedure 06/30/2016 Mickey Leigh 11:46:04 AM RT(R) Signatures Monitor : Mickey Leigh RT Signature : Date : Time : [facility] [address] [place] [address]
--- NOTE | 2016-06-28 05:08 | NUR ---
PT ARRIVED TO ROOM 2121 VIA EMS STRETCHER FROM [place]. ALERT/ORIENTED. ADMISSION ASSESSMENT AND HISTORY COMPLETED. REVIEWED HOME MEDS. PAGE TO AND RETURN CALL FROM DR ANGELES. NEW ORDERS RECEIVED.
--- NOTE | 2016-06-28 05:33 | NUR ---
ADMINISTERED 40MG LASIX SIVP VIA RIGHT HAND IV. PT RESTING. PT TEACHING ON MEASURING ALL OUTPUT. URINAL PROVIDED. O2 @ 2L/NC IN PLACE. UCAF 108 PER TELEMETRY.
[2016-06-28 05:35] VITALS: BP 97/54; BMI 26.7
--- NOTE | 2016-06-28 07:19 | NUR ---
PT LAYING TO LEFT SIDE SLEEPING NO S/S DISTRESS NOTED. WILL CONT TO MONITOR.
[2016-06-28 08:17] LABS: BASOPHILS 0.1 % (0.0-2.0); EOSINOPHILS 0 % (0-7); HEMATOCRIT 47.3 % (42.0-54.0); HEMOGLOBIN 15.3 g/dL (13.5-17.5); IMMATURE GRANULOCYTES 0.5 % (0-5); LYMPHOCYTES 5.3 % (15-50); MCH 32.6 pg (26.0-34.0); MCHC 32.3 g/dL (31.0-37.0); MCV 100.9 fL (80.0-100.0); MONOCYTES 6.1 % (2-11); PLATELET COUNT 64 10x3/uL (130-400); RBC 4.69 10x6/uL (4.20-6.10); WBC 15.2 10x3/uL (4.8-10.8)
--- NOTE | 2016-06-28 08:25 | NUR ---
CALLED TO THE ROOM BY CREDIT COLLECTION SPECIALIST. PT BP LOW AND CAN NOT GET O2 SATS UP. WALKED INTO PT ROOM AND PT IS CYANOTIC AROUND LIPS AND DROWSY HARD TO ARROUSE AND SHAKING. CALLED RAPID RESPONSE. TURNED O2 UP TO 10L. TEAM HERE. ABGS WERE DRAWN PT WAS PLACED ON A OXIMIZER. PT IS A CHRONIC AFIB PT. SHOWING THAT ON TELE. PT COLOR IMPROVING. LAB WAS DRAWN. PT SITTING UP IN BED RECEIVING BREATHING TX. SHAKING LESS. SAYS HE IS FREEZING TEMP IS NORMAL. BP NOW BACK UP TO 97/57. VS 80/34 WHAT IT WAS EARLIER. KARTHIK WAS PAGED AND NOTIFIED. GAVE ORDERS. KEEPING PT ON UNIT. WILL CONT TO MONITOR.
[2016-06-28 08:30] LABS: ALBUMIN 3.7 g/dL (3.4-5.0); ALKALINE PHOSPHATASE 155 U/L (46-116); ALT (SGPT) 20 U/L (10-68); CALC OSMOLALITY 282 mosm/kg (275-300); CALCIUM 9.3 mg/dL (8.5-10.1); CARBON DIOXIDE 28.9 mmol/L (21.0-32.0); CHLORIDE - SERUM 101 mmol/L (98-107); CREATININE - SERUM 2.1 mg/dL (0.6-1.3); GLUCOSE 90 mg/dL (74-106); POTASSIUM - SERUM 4.4 mmol/L (3.5-5.1); PROTEIN - SERUM 7.2 g/dL (6.4-8.2); SODIUM 139 mmol/L (136-145); UREA NITROGEN 26 mg/dL (7-18); eGFR NON AFRICAN AMERICAN 33 mL/min (90-120)
[2016-06-28 08:39] VITALS: BP 82/34
[2016-06-28 08:46] LABS: CKMB 1.4 U/L (0.0-3.6); CREATINE KINASE 127 UL (21-232); PRO BNP 29952 pg/mL (0-125)
[2016-06-28 08:48] LABS: TROPONIN-I 0.268 ng/mL (0.000-0.060)
--- NOTE | 2016-06-28 09:02 | NUR ---
WENT TO GIVE PT BUMEX AND PT WAS NOT IN ROOM. FOUND PT IN BATHROOM. PT HAD UNHOOKED HIMSELF FROM O2 AND BP MACHINE DID NOT CALL FOR HELP TO GET TO THE BATHROOM LIKE HE WAS INSTRUCTED TO DO. SAID "I DIDNT HAVE TIME". PT HAD HAD A BM AND IT WAS ALLIN THE BATHROOM FLOOR AND ALL OVER THE TOILET. GOT PT BACK IN BED. O2 OXIMIZER 6L BACK ON. PT SEMIFOWLERS. BREATHING WELL. CLEANED UP PT ROOM. INSTRUCTED PT AGAIN TO CALL FOR HELP. BA ON.
--- NOTE | 2016-06-28 09:07 | NUR ---
CALLED DR ANGELES TO NOTIFY HIM OF ELEVATED TROPOPONIN. HE IS IN THE ER AND WILL BE UP SOON.
[2016-06-28] MEDS ORDERED: MULTIPLE VITAMI1 TA1 PO (09:29)
[2016-06-28] MEDS ORDERED: FISH OIL 1,0001 CA1 PO (09:30)
[2016-06-28 09:37] LABS: INR 1.64 (0.85-1.17); PROTIME 19.3 SECONDS (11.6-15.0)
--- NOTE | 2016-06-28 10:07 | NUR ---
TALKED WITH KARTHIK ABOUT PT HOME MEDS. SAID HE WOULD LOOK AT THEM. SAID DEFINATELY HOLD PT COUMADIN FOR NOW.
[2016-06-28 12:22] VITALS: BP 105/49
--- NOTE | 2016-06-28 14:48 | NUR ---
PT IS STILL DOING WELL. COLOR IS STILL GOOD. DENIES NEEDS WILL CONT TO MONITOR. KARTHIK ONLY RESTARTED HIS PLAVIX GIVEN EARLIER TODAY.
[2016-06-28 16:14] VITALS: BP 110/64
--- NOTE | 2016-06-28 18:26 | NUR ---
PT SITTING UP IN BED DENIES NEEDS. PT COLOR STILL PINK, SATS STILL WNL. WILL CONT TO MONITOR.
[2016-06-28 19:49] VITALS: BP 121/64
--- NOTE | 2016-06-28 19:52 | NUR ---
INIITAL ROUNDS COMPLETED AT 1905 HRS. PT RESTING WITH EYES CLOSED. RESP EVEN AND REGULAR. ASSESSMENT COMPLETED AT 1920 HRS. VSS. CAF WITH BBB PER CM HR 73. IV TO R HAND WITH DOBUTREX AT 5MCQ/KG/MIN (13.4CC/HR). IV PATENT. O2 4LNC WITH O2 SAT 90%. LUINGS DIMINISHED IN BASES BILAT. LOWER LEGS PURPLE. PALPABLE PEDAL PULSES. FEET WARM TO TOUCH. ULTRAM 50MG PO GIVEN FOR C/O GOODWIN. WILL CONTINUE TO MONITOR. SR UP X2, CALL LIGHT WITHIN REACH.
--- NOTE | 2016-06-28 21:29 | NUR ---
PT RESTING WITH EYES CLOSED. RESP EVEN AND REGULAR. SR UP X2, CALL LIGHT WITHIN REACH.
[2016-06-28 23:55] VITALS: BP 109/69
--- NOTE | 2016-06-29 00:30 | NUR ---
PT AWAKE; DENIES ANY DISCOMOFRT. WILL CONTINUE TO MONITOR.
--- NOTE | 2016-06-29 02:23 | NUR ---
PT AWAKE; DENIES ANY DISCOMFORT. WILL CONTINUE TO MONITOR.
[2016-06-29 04:00] VITALS: BP 116/69
--- NOTE | 2016-06-29 04:14 | NUR ---
PT AWAKE; DENIES ANY DISCOMOFRT. WILL CONTINUE TO MONITOR.
--- NOTE | 2016-06-29 06:15 | NUR ---
VSS THROUGHOUT NIGHT. PT HAS C/O R EYE DISCOMFORT THIS AM. STATES TAKES DROPS BUT DOES NOT KNOW NAME. NO RENESS NOTED. NEEDS MET; WILL CONTINUE TO MONITOR.
[2016-06-29 08:00] VITALS: BP 105/48
--- NOTE | 2016-06-29 08:00 | NUR ---
ALERT AND ORIENTED X4. DENIES PAIN. SOB TREATED WITH OXYGEN THERAPY AT 4L NC. HAS 4 RUNS OF VTACH ON TELEMETRY. PAGE . CONTROLLED A-FIB 88bpm ON TELEMETRY. SITTING UP TO EAT BREAFAST. CONTINUE PLAN OF CARE. BED LOCKED AND LOW. CALL LIGHT IN REACH. TWO SIDERAILS UP.
--- NOTE | 2016-06-29 10:00 | NUR ---
ALERT AND ORIENTED X4. REMAINS CONTROLLED A-FIB 70bpm ON TELEMETRY. IN ROOM. PLAN TO GO TO GROOMING ASSISTANT 06/30/16. CONTINUE PLAN OF CARE. BED LOCKED AND LOW. CALL LIGHT IN REACH. TWO SIDERAILS UP.
[2016-06-29 10:58] LABS: BASOPHILS 0.1 % (0.0-2.0); EOSINOPHILS 0.1 % (0-7); HEMATOCRIT 40.4 % (42.0-54.0); HEMOGLOBIN 13.2 g/dL (13.5-17.5); IMMATURE GRANULOCYTES 0.1 % (0-5); LYMPHOCYTES 9.5 % (15-50); MCH 32.2 pg (26.0-34.0); MCHC 32.7 g/dL (31.0-37.0); MEAN PLATELET VOLUME 10.8 fL (7.4-10.4); MONOCYTES 10.1 % (2-11); NEUTROPHILS 80.1 % (40-80); PLATELET COUNT 60 10x3/uL (130-400); RDW 16.8 % (11.5-14.5)
[2016-06-29 11:05] LABS: MCV 98.5 fL (80.0-100.0); WBC 8.9 10x3/uL (4.8-10.8)
[2016-06-29 11:08] LABS: ANION GAP 12.8 mmol/L (8-16); CALCIUM 8.4 mg/dL (8.5-10.1); CARBON DIOXIDE 28.8 mmol/L (21.0-32.0); CREATININE - SERUM 1.7 mg/dL (0.6-1.3)
[2016-06-29 11:09] LABS: POTASSIUM - SERUM 3.6 mmol/L (3.5-5.1)
[2016-06-29 11:53] VITALS: BP 95/70
--- NOTE | 2016-06-29 14:39 | NUR ---
ALERT AND ORIENTED X4. NO CHANGE. CONSENTS SIGNED ON CHART. CONTROLLLED A-FIB 76bpm ON TELEMETRY. CONTINUE PLAN OF CARE. LAYING IN BED WATCHING TV. CONTINUE SAFETY PRECAUTIONS.
--- NOTE | 2016-06-29 15:51 | NUR ---
ALERT AND ORIENTED X4. RT HAND IV INFILTRATED. DC RT HAND IV TIP INTACT. RESITE IV TO RT FA 22G. CONTINUE DOBUTREX INFUSION ORDERED. CONTROLLED A-FIB 82bpm ON TELEMETRY. DENIES PAIN OR SOB. CONTINUE PLAN OF CARE. BED LOCKED AND LOW. CALL LIGHT IN REACH. TWO SIDERSAILS UP.
[2016-06-29 15:57] VITALS: BP 95/51
[2016-06-29 20:00] VITALS: BP 105/79
--- NOTE | 2016-06-29 21:27 | NUR ---
INITIAL ROUNDS COMPLETED AT 1909 HRS. PT DENIED ANY DISCOMOFRT. ASSESSMENT COMPLETED AT 1929 HRS. ULTRAM 50MG PO GIVEN FOR C/O GOODWIN. VSS. O2 2LNC. CAF PER CM HR 85. LUNGS DIMINISHED IN BASES BILAT. LOWER LEGS PURPLE. PALPABLE PEDL PULSES. FEET COOLER TO TOUCG. IV TO RFA WITH DOBUTREX AT 5MCQ/KG/MIN (13.4CC/HR). IV PATENT. PT CURRENTLY WATCHING TV. DENIES ANY DISCOMFORT. SR UPX2, CALL LIGHT WITHIN REACH.
--- NOTE | 2016-06-29 22:44 | NUR ---
LARGE BM NOTED IN BSC. PT STATES FEELS MUCH IMPROVED. WILL CONTINUE TO MONITOR.
--- NOTE | 2016-06-30 00:06 | NUR ---
PT RESTING WITH EYES CLOSED. RESP EVEN AND REGULAR. SR UP X2, CALL LIGHT WITHIN REACH.
--- NOTE | 2016-06-30 00:48 | NUR ---
IV OUT WITH CATHETER INTACT. NEW IV STARTED #20 TO RFA WITHATTEMPT X1. PT TOLERATED ACTIVITY WELL. PT WEIGHED 99 KG PER SCALE. DOBUREX DRIP RESTARTED AT 5MCQ/KG/MIN (14.9CC/HR). WILL CONTINUE TO MONITOR.
[2016-06-30 01:24] VITALS: BP 114/61
--- NOTE | 2016-06-30 02:28 | NUR ---
PT RESTING WITH EYES CLOSED. RESP EVEN AND REGULAR. SR UP X2, CALL LIGHT WITHIN REACH.
--- NOTE | 2016-06-30 04:30 | NUR ---
PT AWAKE; DENIES ANY DISCOMFORT. WILL CONTINUE TO MONITOR.
--- NOTE | 2016-06-30 05:58 | NUR ---
VSS THROUGHOUTNIGHT. CAF PER CM. PT STATED ULTRAM CONTROLLED GOODWIN. PT NPO FOR AM LHC. NEEDS MET; WILL CONTINUE TO MONITOR.
[2016-06-30 06:22] LABS: CALCIUM 8.7 mg/dL (8.5-10.1); CARBON DIOXIDE 29.5 mmol/L (21.0-32.0); CREATININE - SERUM 1.5 mg/dL (0.6-1.3); POTASSIUM - SERUM 3.5 mmol/L (3.5-5.1)
[2016-06-30 06:26] VITALS: BP 105/91
--- NOTE | 2016-06-30 06:36 | NUR ---
Glo LINO RN NOTIFIED OF PT'S BUN AND CREATININE.
[2016-06-30 07:47] VITALS: BP 105/70
--- NOTE | 2016-06-30 09:55 | NUR ---
ALERT AND ORIENTED X4. SITTING UP IN BED. BATH AND LINEN CHANGE COMPLETE. CONTROLLED A-FIB 78bpm ON TELEMETRY. 2ND IV SITE BY STUDENT NURSE RT FA 22G. 20G RT FA IV INFUSING DOBUTREX @ 14.9mL/HR. DENIES PAIN. SOB TREATED WITH OXYGEN 2L NC. NONPHARM REASON NO SCDs. PRE-OP COMPLETE FOR PLUGMAN. BED LOCKED AND LOW. CALL LIGHT IN REACH. TWO SIDERAILS UP. CONTINUE PLAN OF CARE.
--- NOTE | 2016-06-30 12:05 | NUR ---
RETURN TO ROOM VIA BED FROM [employer]. LETHARGIC AND RESTLESS. INSTRUCT TO REMAIN FLAT FOR NEXT 4 HOURS. LT GROIN DRESSING CLEAN DRY INTACT. NO HEMATOMA. NO BLEEDING. CONTROLLED A-FIB 92bpm ON TELEMETRY. TURN BED ALARM ON. PULSES WEAK BILATERAL NO CHANGE PRIOR TO STENT. CONTINUE TO MONITOR CLOSELY. BED LOCKED AND LOW. CALL LIGHT IN REACH. TWO SIDERAILS. BP-129/74, P-92, R-18, 98% 2L NC.
[2016-06-30 13:34] VITALS: Ht 182.9 cm; Wt 104.5 kg
--- NOTE | 2016-06-30 16:56 | NUR ---
Patient Name: YARI MCKEON Admission Status: Elective Accout number: [id number] Admission Date: 06-28-2016 : 1940 Admission Diagnosis: Attending: KAILEY Current LOS: 2 Anticipated DC Date: Planned Disposition: Home Primary Insurance: MEDICARE A & B Discharge Planning Comments: * Is the patient Alert and Oriented? Yes 0 * How many steps to enter\exit or inside your home? 4-5 0 * PCP DR. VERDIN IN ROSS 0 * Pharmacy TA IN ROSS 0 * Preadmission Environment Home Alone 0 * ADLs Independent 0 * Equipment Oxygen 0 * Other Equipment OXYGEN AT NIGHT ONLY [facility] - MEDICAL EQUIPMENT PROVIDER 0 * List name and contact numbers for known caregivers / representatives who currently or will assist patient after discharge: ABY HAMMOND, MARGA EATON/ABY LINDSEY, ABY BERUMENG, 0 * Community resources currently utilized Home Health Meals on Wheels Private Duty Care 0 * Please name any agencies selected above. [facility], [place]S PRIVATE PAY AIDE MEALS ON WHEELS THROUGH [employer] [facility] 0 * Additional services required to return to the preadmission environment? No 0 * Can the patient safely return to the preadmission environment? Yes 0 * Has this patient been hospitalized within the prior 30 days at any hospital? No 0 CM MET WITH PT IN ROOM TO DISCUSS DISCHARGE PLANNING AND NEEDS. PT REPORTS LIVING AT HOME INDEPENDENTLY AND ALONE. PT HAS OXYGEN AT NIGHT PROVIDED BY [facility]. PT HAS HOME HEALTH WITH [facility] AND MEALS ON WHEELS. PT HAS PRIVATE PAY AIDE THAT HELPS NEEDED. CM DISCUSSED AVAILABILITY OF HOME HEALTH, REHAB SERVICES AND MEDICAL EQUIPMENT. PT DENIES DISCHARGE NEEDS, REPORTS HIS COUSIN WILL PICK HIM UP FOR DISCHARGE HOME. IMPORTANT MESSAGE FROM MEDICARE PROVIDED AND EXPLAINED. TO RESUME HOME HEALTH AT DISCHARGE, NOTIFY [facility] AT [phone], FAX DISCHARGE INFORMATION TO [phone]. CM TO FOLLOW AND ASSIST NEEDED. Administrative Officer: Zion Mario
--- NOTE | 2016-06-30 16:57 | NUR ---
ALERT AND ORIENTED X4. UP IN BED. LT GROIN DRESSING CLEAN DRY INTACT. NO BLEEDING. NO HEMATOMA. PULSES WEAK BILATERALLY NO CHANGE PRIOR TO CATH. CONTINUE PLAN OF CARE. BED LOCKED AND LOW. CALL LIGHT IN REACH. TWO SIDERAILS UP. CONTROLLED A-FIB 87bpm ON TELEMETRY.
--- NOTE | 2016-06-30 19:38 | NUR ---
ASSESSMENT COMPLETE, A&O, 02 AT 2 LITER VIA NC. IV TO RIGHT FOREARM WITH DOBUTREX AT 14.9. SITE CLEAN AND DRY. DRSG TO LEFT GROIN C/D/I. NO SWELLING OR BLEEDING NOTED. SOFT TO TOUCH, NO HEMATOMA NOTED. RIGHT GROIN WITH BRUISES NOTED, FROM CATH DONE LAST WEEK. ASSIST PT IN REPOSITIONING IN BED FOR COMFORT, BED LOW, CL IN REACH, WILL CONT TO MONITOR.
[2016-06-30 20:00] VITALS: BP 124/87
--- NOTE | 2016-06-30 22:18 | NUR ---
SITTING UP ON SIDE OF BED, DENIES NEEDS.
[2016-07-01] VITALS: BP 123/69
--- NOTE | 2016-07-01 00:30 | NUR ---
METAL HANGER AT BEDSIDE FOR VS. NEEDS ADDRESSED. CALL LIGHT IN REACH. WILL CONT TO MONITOR.
[2016-07-01 04:00] VITALS: BP 122/76
--- NOTE | 2016-07-01 07:52 | NUR ---
ASSESSMENT COMPLETED. WANTS TO GO HOME. O2 AT 2 L/M PER NC. TELEMERTY SHOWS CAF AT 96. IV OF DOBUTRES 14.9 INFUSING INTO RIGHT FA. LEFT GROIN SOFT WITH DRSG DRY AND INTACT. RIGHT GROIN BRUISED. SR UP WITH CALL LIGHT IN REACH. WILL MONITOR
[2016-07-01 07:53] VITALS: BP 109/67
--- NOTE | 2016-07-01 12:30 | NUR ---
PT DISCHARGED. IV DCD WITH TIP INTACT. INSTRUCTIONS GIVEN TO PT. TO PRIVATE CAR PER WHEELCHAIR.
--- NOTE | 2016-07-04 08:46 | HP ---
PATIENT: YARI MCKEON [place] MEDICAL RECORD: [id number] ACCOUNT: [id number] LOCATION:[address] : 42 ADMISSION DATE: 06/28/16 HISTORY AND PHYSICAL EXAMINATION DIAGNOSES: 1. Congestive heart failure, chronic systolic dysfunction. 2. Cardiomyopathy. 3. Coronary artery disease. 4. Non-Q-wave myocardial infarction. 5. Renal insufficiency. 6. Atrial fibrillation, chronic. 7. Abnormal ECG, left bundle branch block, chronic. 8. Hypertension. HISTORY OF PRESENT ILLNESS: Mr. Mckeon presents with shortness of breath that came on rapidly yesterday, his troponin is positive for non-Q-wave myocardial infarction. He does have a history of coronary artery disease, history of a cardiomyopathy, history of congestive heart failure, last cardiac intervention was 1 year ago with PTCA stent of the ramus intermedius with bare metal stenting. He has a total occlusion of the LAD that is chronic and ejection fraction in the 25% range. He also has chronic atrial fibrillation for which he is on Coumadin; however, he states that he has been off of his Coumadin for 5 days. He wanted evaluation for an abdominal hernia surgery. He was told to follow up with cardiology. He has actually not followed up with us in the office since 2013. He thought that we would suggest cardiac angiography and that is why he has been off his Coumadin. His respiratory status is now stable with diuresis after IV Lasix and IV Bumex. He as well has COPD and received updrafts. PHYSICAL EXAMINATION: GENERAL APPEARANCE: Well-nourished, well-developed, appears stated age. Level of distress, comfortable. PSYCHIATRIC: Mental status, alert, normal affect. Orientation, oriented to time, place and person. EYES: Lids and conjunctiva, noninjected. No discharge, no pallor. ENT: Lips, teeth, gums, normal dentition. Oropharynx, no cyanosis, no pallor. NECK: Carotid arteries, bilateral normal upstroke, no bruits, no thrills. JUGULAR VEINS: No jugular venous pressure or distention. CERVICAL LYMPH NODES: Nontender, nonenlarged. THYROID: Not enlarged. Nontender. No nodules. LUNGS: Respiratory effort, unlabored. CHEST: Normal curvature. No thoracic deformity. No chest wall tenderness. Percussion, resonant. Auscultation, clear. No wheezes, no rales, no rhonchi. CARDIOVASCULAR: Precordial exam, nondisplaced. No heaves or pericardial thrills. Rate and rhythm, regular. Heart sounds, normal S1, normal S2. No S3, no gallop, no rub. Systolic murmur, not heard. Diastolic murmur, not heard. EXTREMITIES: No cyanosis, no edema. Peripheral pulses, full and equal in all extremities, except as noted. No bruits appreciated. ABDOMEN: Soft, nondistended. Normal aorta. No bruit. Nontender. No masses. Liver, nontender, no hepatomegaly. Spleen, nontender, no splenomegaly. MUSCULOSKELETAL: No joint tenderness. No joint swelling. No erythema. NEUROLOGICAL: Normal gait, normal strength, normal tone. SKIN: Warm and dry. HISTORY AND PHYSICAL [id number] YARI MCKEON REVIEW OF SYSTEMS: The patient reports easy bruising but reports no swollen glands. The patient reports no fever, no night sweats, no significant weight gain, no significant weight loss. No significant exercise tolerance. The patient reports no dry eyes, no irritation, no vision change. Patient reports no difficulty hearing and no ear pain. Patient reports no frequent nose bleeds or nose and sinus problems. Patient reports on arm pain on exertion. No shortness of breath while lying down. No history of heart murmur. Patient reports no cough, no wheezing or coughing up blood. Patient reports no abdominal pain, no vomiting. Normal appetite. No diarrhea and not vomiting blood. No nausea and no constipation. Patient reports no incontinence. No difficulty urinating. No hematuria. No increased frequency. Patient reports no muscle aches. No weakness, no arthralgias, no back pain. No swelling of the extremities. Patient reports no abnormal mole, no jaundice, no rashes. Reports no loss of consciousness. No weakness and no numbness. No seizures, dizziness, or headaches. The patient reports no depression, no sleep disturbance, feeling safe in a relationship and no alcohol abuse. Patient reports on fatigue. Reports no runny nose or sinus pressure. No itching, no hives, and no frequent sneezing. OVERALL IMPRESSION: Non-Q-wave myocardial infarction, and most likely, he does have recurrent hemodynamically significant coronary artery disease as the etiology of his congestive heart failure exacerbation. We will check PT/INR, stabilize his respiratory status further with diuresis and continue breathing treatments and proceed with coronary angiography in the near future. TRANSINT:[id number] Voice Confirmation ID: [id number] DOCUMENT ID: [id number] ANIYA ANGELES MD at 0846 CC: [id number] DICTATION DATE: 06/28/16 0932 COTTON SAMPLER: 06/28/16 1025 DIS IN 07/01/16 [place] [id number] [place] [id number]
--- NOTE | 2016-07-04 08:47 | EC ---
PATIENT:YARI MCKEON DATE OF SERVICE: 06/28/16 SEX: M MEDICAL RECORD: [id number] DATE OF : 42 LOCATION:D.M2 D.212 AGE OF PATIENT: 75 ADMISSION DATE: 06/28/16 REFERRING PHYSICIAN: INTERPRETING PHYSICIAN: ANIYA EL MD ECHOCARDIOGRAM REPORT ECHO CHARGES 4 ECHO COMPLETE CLINICAL DIAGNOSIS: CHF/SOB ECHOCARDIOGRAPHIC MEASUREMENTS (adult normal given) AC root (d.<3.7cm) 3.9 LV Septum d (<1.2 cm> 4.0 Valve Excursion 1.3 LV Septum (systole) 1.2 Left Atria (s.<4.0cm> 5.7 LVPW d(<1.2cm) 1.1 RV (d.<2.3cm) 4.6 LVPW (sytole) 1.2 LV diastole(<5.6CM) 8.6 MV E-F(>70mm/sec) LV systole 7.0 LVOT Diameter 1.3 MV exc.(>10mm) 1.3 Est.ejection fraction (50-75%) Pericardial Effusion N DOPPLER: LVIT A 132 E 30.0 LA RVSP 57 LVOT 123 AOP1/2T Asc. Ao 175 RVOT 133 RA PA 152 AV Gradient Peak 12.25 AV Mean 6.82 AV Area 0.9 MV Gradient Peak 8.32 MV Mean 2.6 MV Area COMMENTS: Cash Posting Clerk: Teddy LYON Seo Intern:Swetha El TAPE# PACS DATE OF SERVICE: 06/28/2016 Echocardiogram FINDINGS: 1. Left ventricular chamber size is dilated. Left ventricular systolic function is moderate to severely reduced, overall ejection fraction 30%. 2. Left atrium is severely dilated at 5.7 cm. Right atrium and right ventricular chamber sizes are as well severely dilated. 3. Valvular structures: Aortic valve demonstrates moderate calcific aortic ECHOCARDIOGRAM REPORT [id number] YARI MCKEON stenosis. Valve area calculates to 0.9 cm-squared. There is only a gradient of 12 mm across the valve most likely the gradient is low secondary to a low ejection fraction. 4. Doppler interrogation elsewise reveals mild mitral regurgitation, severe tricuspid regurgitation. Pulmonary systolic pressure is elevated estimated at 57 mmHg. 5. No evidence of pericardial effusion or left ventricular thrombus. TRANSINT:[id number] Voice Confirmation ID: [id number] DOCUMENT ID: [id number] ANIYA EL MD at 0847 CC: [id number] DICTATION DATE: 06/29/16 1031 TECHNICAL INTERNSHIP: 06/29/161922 DIS IN 07/01/16 [facility] [address] [place] [id number]
--- NOTE | 2016-07-04 08:47 | OP ---
PATIENT NAME: YARI MCKEON MEDICAL RECORD: [id number] :42 LOCATION:D.M2 D.2122 ADMISSION DATE:06/28/16 SURGEON: ANIYA ANGELES MD DATE OF OPERATION: 06/30/2016 PROCEDURES: 1. PTCA stent RCA. 2. Left heart catheterization. 3. Selective coronary angiography. INDICATION: Angina, heart failure, coronary artery disease. PROCEDURE IN DETAIL: After informed consent was obtained and after detailed explanation of risks, benefits as well as alternative therapies, the patient elected to proceed with angiogram and angioplasty. The right femoral area was prepped and draped in normal sterile fashion. Right femoral artery was cannulated via modified Seldinger technique with placement of 6-[place]ub[place] sheath. All catheters exchanged through this sheath. FINDINGS: Left ventriculogram was not performed secondary to dye conservation, renal insufficiency and recent evaluation of cardiomyopathy. SELECTIVE CORONARY ANGIOGRAPHY: 1. Left main is with no significant angiographic disease. 2. Left anterior descending is chronically totally occluded, unchanged from previous angiography. 3. Wide patency of the stents in the first obtuse marginal and ramus intermedius, left circumflex shows moderate irregularities elsewise. 4. Right coronary has 75% stenosis in the mid vessel. PTCA STENT OF THE RIGHT CORONARY: The stent used was a 3.0 x 18 mm Integrity taken to 17 atmospheres. Result was 0% residual stenosis. OVERALL IMPRESSION: Successful percutaneous transluminal coronary angioplasty stent of the right coronary artery going from 75% initial stenosis to 0% residual. TRANSINT:[id number] Voice Confirmation ID: [id number] DOCUMENT ID: [id number] ANIYA ANGELES MD at 0847 CC: [id number] DICTATION DATE: 06/30/16 1140 AERODYNAMIC CONSULTANT: 06/30/16 1212 DIS IN 07/01/16 [place] [id number]
--- NOTE | 2016-07-04 08:47 | DS ---
PATIENT:YARI MCKEON :42 MEDICAL RECORD: [id number] DISCHARGE SUMMARY ADMISSION DATE: 06/28/16 DISCHARGE DATE: 07/01/16 DISCHARGE DIAGNOSES: 1. Angina. 2. Coronary artery disease. 3. Percutaneous transluminal coronary angioplasty stent right coronary artery this admission. 4. Congestive heart failure and chronic systolic dysfunction. 5. Cardiomyopathy. 6. Atrial fibrillation. HOSPITAL COURSE: Mr. Mckeon presents with heart failure symptomatology as well as anginal symptomatology. The heart failure symptomatology cleared with medical management. He underwent repeat cardiac catheterization revealing wide patency of the stents that were placed by Dr. Townsend and successful PTCA stent at this admission of the RCA. He had no further anginal symptomatology, no further heart failure symptomatology. He was discharged home to continue his aspirin and Plavix. We will follow up with [facility] as previously scheduled. TRANSINT:[id number] Voice Confirmation ID: [id number] DOCUMENT ID: [id number] ANIYA ANGELES MD at 0847 CC: [id number] DICTATION DATE: 07/01/16 1117 MACHINE CLERICAL VERIFIER: 07/02/16 0131 DIS IN 07/01/16 [place] [id number] [place] [address]
== END 2016-07-01 12:34 | disposition home health service (06) | DRG 249 ==
LOC: D.M2 04:26 → OBSVTIME 04:28 → D.M2 16:31
PROVIDERS: ADMIT Internal Medicine Interventional Cardiology
PROC: 4A023N7 Measurement of Cardiac Sampling and Pressure, Left Heart, Percutaneous Approach (ICD-10-PCS; 2016-06-30)
PROC: B2111ZZ Fluoroscopy of Multiple Coronary Arteries using Low Osmolar Contrast (ICD-10-PCS; 2016-06-30)
PROC: B2151ZZ Fluoroscopy of Left Heart using Low Osmolar Contrast (ICD-10-PCS; 2016-06-30)
PROC: 02703DZ Dilation of Coronary Artery, One Artery with Intraluminal Device, Percutaneous Approach (ICD-10-PCS; principal; 2016-06-30 11:00)
DX: I21.4 Non-ST elevation (NSTEMI) myocardial infarction (principal); I42.9 Cardiomyopathy, unspecified; I50.22 Chronic systolic (congestive) heart failure; I25.119 Atherosclerotic heart disease of native coronary artery with unspecified angina pectoris; I11.0 Hypertensive heart disease with heart failure; N28.9 Disorder of kidney and ureter, unspecified; I44.7 Left bundle-branch block, unspecified; R94.31 Abnormal electrocardiogram [ECG] [EKG]; I48.2 Chronic atrial fibrillation

== ENCOUNTER 2016-11-05 07:55 | Outpatient (CLI) | payer MEDICARE, OTHER ==
[~2016-11-05] VITALS: Ht 182.9 cm; Wt 100.0 kg
--- NOTE | ~2016-11-05 | HEMODYNAMI ---
PATIENT:YARI MCKEON MEDICAL RECORD: [id number] : 42 LOCATION:[place] ADMISSION DATE: 11/05/16 Generatedon:11/05/201611:06 Patient name: YARI MCKEON Patient #: [id number] SSN: [id number] : 1940 Date of study: 11/05/2016 Page: Of Hemodynamic Procedure Report Patient Data Patient Demographics Procedure consent was obtained First Name: YARI Gender: Male Last Name: LINDA : 1940 [facility] Initial: GENE Age: 76 year(s) Patient #: [id number] Race: SSN: [id number] Additional ID: [id number] Contact details [address]: [address] [place] [address] State: [place] City: [place] Zip code: [address] Past Medical History Allergies: No known allergies Admission Admission Data Admission Date: 11/05/2016 Admission Time: 7:55 Procedure Procedure Types Cath Procedure Peripheral Cath Diagnostic Procedure Miscellaneous Procedure Description Procedure Date Procedure Date: 11/05/2016 Procedure Start Time: 10:54 Procedure Staff Name Function Bebeto Hendrix MD Performing Physician Torie Chi RT Scrub Manuel Dove RT Monitor Procedure Data Cath Procedure Contrast Material Contrast Material Type Amount (ml) Isovue 300 105 Hemodynamics Rest Pre Cath Intra NCS Post Cath Procedure Log Time Note 10:45:06 Manuel Dove RT (R) (CV) sent for patient. Start room use. 10:54:26 Patient received from Outpatients to IR Alert and oriented. Tansferred to table in Supine position. 10:54:28 Correct patient and procedure confirmed by team. 10:54:33 Signed procedure consent form obtained from patient. 10:54:36 Procedure started. 10:54:36 Full Disclosure recording started 11:05:54 Procedure ended.(Physican Out) 11:06:10 Contrast amount:Isovue 300 105ml. 11:06:12 Sharps counted by scrub and verified by R.N. 11:06:21 Report given to Outpatients. 11:06:33 Patient transfered to Outpatients with Stretcher. Signature Audit [place] Stage Time Signature Unsigned Intra-Procedure 11/05/2016 Manuel 11:06:49 AM Petty ANN (Mohan) (CV) Signatures Monitor : Manuel Signature : Petty RT Date : Time : [place] [id number] [place] [address]
[~2016-11-05 07:55] MED LIST changes: +COUMADIN2 MG PO; -COUMADIN5 MG PO; +FISH OIL 1,0001 CA1 PO; +MULTIPLE VITAMI1 TA1 PO
[2016-11-05] MEDS ORDERED: SYNTHROID25 MCG PO (08:31)
[2016-11-05] MEDS ORDERED: ZYLOPRIM100 MG PO (08:33)
[2016-11-05] MEDS ORDERED: COUMADIN3 MG PO (08:35)
[2016-11-05] MEDS ORDERED: COREG12.5 MG PO (08:37)
[2016-11-05] MEDS ORDERED: VALTREX1000 MG PO (08:39)
[2016-11-05] MEDS ORDERED: OCUFLOX 0.3 % OP5 ML RIGHT EYE (08:39)
[2016-11-05] MEDS ORDERED: REFRESH TEARS15 ML EACH EYE (08:41)
[2016-11-05] MEDS ORDERED: ERYTHROMYCIN OPT1 GM OP (08:42)
[2016-11-05 09:03] VITALS: BP 107/75; Ht 182.9 cm; Wt 100.0 kg
[2016-11-05 09:04] LABS: BASOPHILS 0.5 % (0-2); EOSINOPHILS 2.8 % (0-7); HEMOGLOBIN 14.1 g/dL (13.5-17.5); IMMATURE GRANULOCYTES 0.3 % (0-5); MCH 33.1 pg (26.0-34.0); MCV 103.3 fL (80.0-100.0); MEAN PLATELET VOLUME 10.7 fL (7.4-10.4); MONOCYTES 12.3 % (2-11); NEUTROPHILS 60.1 % (40-80); RBC 4.26 10x6/uL (4.20-6.10); WBC 3.9 10x3/uL (4.8-10.8)
[2016-11-05 09:08] LABS: ANION GAP 13.5 mmol/L (8-16); CALCIUM 9.5 mg/dL (8.5-10.1); CREATININE - SERUM 1.6 mg/dL (0.6-1.3); POTASSIUM - SERUM 4.5 mmol/L (3.5-5.1)
[2016-11-05 09:17] LABS: APTT 38.9 SECONDS (22.8-39.4); INR 2.97 (0.85-1.17); PROTIME 31.2 SECONDS (11.6-15.0)
[2016-11-05 09:33] LABS: PLATELET COUNT 90 10x3/uL (130-400)
[2016-11-05 10:27] LABS: PLATELET ESTIMATE DECREASED
--- NOTE | 2016-11-05 12:29 | NUR ---
1220 ROUNDS BY MARCELINO MARINA RN.
== END 2016-11-05 14:30 | disposition home or self-care (01) ==
LOC: D.OPS 07:55 → D.RAD 09:00 → D.OPS 10:00 → D.RAD 10:00 → D.OPS 14:30
PROVIDERS: Specialist
DX: Z86.718 Personal history of other venous thrombosis and embolism (principal); I82.522 Chronic embolism and thrombosis of left iliac vein

== ENCOUNTER → 2017-09-28 10:53 | Outpatient (CLI) | payer MEDICARE, OTHER ==
[~2017-09-28] VITALS: Ht 182.9 cm; Wt 94.5 kg
--- NOTE | ~2017-09-28 | HEMODYNAMI ---
PATIENT:YARI MCKEON MEDICAL RECORD: [id number] : [birth year] LOCATION:[facility] ADMISSION DATE: 09/28/17 Generatedon:09/28/201714:00 Patient name: YARI MCKEON Patient #: [id number] : 1940 Date of study: 09/28/2017 Page: Of Hemodynamic Procedure Report Patient Data Patient Demographics Procedure consent was obtained First Name: YARI Gender: Male Last Name: LINDA : 1940 [facility] Initial: GENE Age: 77 year(s) Patient #: [id number] Race: SSN: [id number] Additional ID: [id number] Contact details Address: [address] [place] [address] State: [place] City: [place] Zip code: [address] Past Medical History Allergies: No known allergies Admission Admission Data Admission Date: 09/28/2017 Admission Time: 10:53 Height (in.): 72 BSA: 2.18 (m2) Height (cm.): 182.88 BMI: 28.7 (kg/m2) Weight (lbs.): 211.64 Weight (kg.): 96 Lab Results Lab Result Date: 09/28/2017 Lab Result Time: 0:00 Biochemistry Name Units Result Min Max BUN mg/dl 32 --(----)-* 7 18 Creatinine mg/dl 1.5 --(----)-* 0.6 1.3 CBC Name Units Result Min Max Hemoglobin g/dl 15.8 --(--*-)-- 13.5 17.5 Platelets 10^3/l 79 -*(----)-- 130 400 Procedure Procedure Types Cath Procedure Diagnostic Procedure [facility] w/Coronaries Procedure Description Procedure Date Procedure Date: 09/28/2017 Procedure Start Time: 13:36 Procedure End Time: 13:59 Procedure Staff Name Function Akin Townsend MD Performing Physician Leonard Jenkins RT Monitor Alexsandra Sultana RN Nurse Ayanna Avalos RT Scrub Procedure Data Cath Procedure Fluoroscopy Diagnostic fluoroscopy Total fluoroscopy Time: 2.5 time: 2.5 min min Diagnostic fluoroscopy Total fluoroscopy dose: 889 dose: 889 mGy mGy Contrast Material Contrast Material Type Amount (ml) Isovue 300 75 Entry Location Entry Primary Successful Side Size Upsize Upsize Entry Closure Mendoza ccessful Closure Location (Fr) 1 (Fr) 2 (Fr) Remarks Device Remarks Femoral Right 5 Fr Manual vein Compression Femoral Right 5 Fr Exoseal artery Estimated blood loss: 10 ml Diagnostic catheters Device Type Used For End Catheter Placement MULTIPACK JL 4.0 5Fr Procedure catheter DIAGNOSTIC JL 5 5Fr Procedure catheter ([id number]) MULTIPACK 3DRC 5Fr Procedure catheter MULTIPACK Pigtail 5 Fr Procedure catheter Procedure Complications No complications Procedure Medications Medication Administration Route Dosage Oxygen NC 2 l/min Lidocaine 2% added to field 20 Heparin Flush Bag added to field 2 bags (1000units/500ml NS) 0.9% NaCl I.V. 100 ml/hr Versed I.V. 1 mg Fentanyl I.V. 50 mcg Hemodynamics Rest BSA: 2.18 (m2) HGB: 15.8 (g/dl) O2 Consumption: Estimated: 260.16 (ml/min) O2 Co nsumption indexed: Estimated:119.34 (ml/min/m) Heart Rate: 82 (bpm) Pressure Samples Time Site Value (mmHg) Purpose Heart Use Rate(bpm) 13:49 LV 104/20,30 Snapshot 78 13:50 AO 102/64(82) Pullback 70 13:50 LV 123/23,40 Pullback 70 Gradients Valve Time Site 1 Site 2 Mean SEP/DFP Peak To Heart Use (mmHg) (sec/min) Peak Rate (mmHg) (bpm) Aortic 13:50 LV AO 4 12 21 70 123/23,40 102/64(82) Calculations Valve P-P Mean Valve Index Valve Source Name Gradient Area Flow (cm2) Aortic 21 4 21 4 Snapshots Pre Cath Intra NCS Post Cath Vital Signs Time Heart Resp SPO2 etCO2 NIBP Rhythm Pain Sedation Rate (ipm) (%) (mmHg) (mmHg) Status Level (bpm) 13:19:07 80 17 94 0 99/69(84) A-Fib 0 (11) 9(A) , No pain 13:23:07 63 16 96 0 102/68(89) A-Fib 0 (11) 9(A) , No pain 13:27:11 76 24 97 0 104/71(83) A-Fib 0 (11) 9(A) , No pain 13:31:14 71 18 96 0 106/67(80) A-Fib 0 (11) 9(A) , No pain 13:35:18 73 19 96 0 103/70(81) A-Fib 0 (11) 9(A) , No pain 13:39:20 67 15 96 0 98/67(79) A-Fib 0 (11) 9(A) , No pain 13:43:22 79 30 93 0 103/66(83) A-Fib 0 (11) 9(A) , No pain 13:47:28 75 17 93 0 101/59(88) A-Fib 0 (11) 9(A) , No pain 13:51:29 89 19 94 0 105/70(76) A-Fib 0 (11) 9(A) , No pain 13:55:33 77 15 93 0 103/68(80) A-Fib 0 (11) 9(A) , No pain 13:59:37 74 18 92 0 94/62(78) A-Fib 0 (11) 9(A) , No pain Medications Time Medication Route Dose Verified Delivered Reason Notes Effe ctiveness by by 13:18:35 Oxygen NC 2 Akin Buffie used for l/min Kristian Sultana RN procedure 13:18:42 Lidocaine 2% added 20ml Akin Akin for local to vial Kristian Townsend MD anesthetic field 13:18:48 Heparin Flush added 2 Akin Akin used for Bag to bags Kristian Townsend MD procedure (1000units/500ml field NS) 13:19:00 0.9% NaCl I.V. 100 Akin Buffie Per ml/hr Kristian Sultana RN physician 13:32:38 Versed I.V. 1 mg Akin Buffie for Kristian Sultana RN sedation 13:32:44 Fentanyl I.V. 50 Akin Buffie for mcg Kristian Sultana RN sedation Procedure Log Time Note 12:50:10 Alexsandra Sultana RN sent for patient. Start room use. 13:09:21 Time tracking: Regular hours (M-F 7:00 - 5:00) 13:09:25 Plan of Care:Hemodynamics will remain stable., Cardiac rhythm will remain stable., Comfort level will be maintained., Respiratory function will remain adequate., Patient/ family verbilizes understanding of procedure., Procedure tolerated without complication., Recovers from procedure without complications.. 13:09:32 Patient received from Pre/Post Procedure Room to CCL 2 Alert and oriented. Tansferred to table in Supine position. 13:09:34 Warm blankets applied, and bel hugger turned on for patient comfort. 13:09:34 Correct patient and procedure confirmed by team. 13::35 Signed procedure consent form obtained from patient. 13:09:35 ECG and BP/O2 sat monitors applied to patient. 13:16:11 Vital chart was started 13:18:35 Oxygen 2 l/min NC was administered by Alexsandra Sultana RN; used for procedure; 13:18:42 Lidocaine 2% 20ml vial added to field was administered by Akin Townsend MD; for local anesthetic; 13:18:48 Heparin Flush Bag (1000units/500ml NS) 2 bags added to field was administered by Akin Townsend MD; used for procedure; 13:19:00 0.9% NaCl 100 ml/hr I.V. was administered by Alexsandra Sultana RN; Per physician; 13:28:31 Baseline sample Acquired. 13:28:44 Rhythm: sinus rhythm 13:28:45 Full Disclosure recording started 13:28:53 H&P Date Dictated: 09/16/2017 Within 30 days and on chart., H&P Addendum completed by physician on day of procedure. (MUST COMPLETE FOR ALL OUTPATIENTS). 13:28:54 Pre-procedure instructions explained to patient. 13:28:54 Pre-op teaching completed and patient verbalized understanding. 13:28:56 Family in patients room. 13:28:57 Patient NPO since Midnight. 13:28:58 Is the patient allergic to Iodine/contrast media? No. 13:29:08 Is patient on blood thinner?Yes 13:29:34 Last dose of Coumadin was 09/23/17. 13:29:44 Previous problem with sedation/anesthesia? No ? 13:29:52 Snore? No 13:29:53 Sleep apnea? No 13:29:54 Deviated septum? No 13:29:55 Opens mouth fully? Yes 13:29:55 Sticks out tongue? Yes 13:30:11 Airway obstruction? No Sleeps with oxygen at night. 13:30:18 Dentures? Yes OUT 13:30:25 Pre procedure: right dorsailis pedis pulse 1+ Palpable, but thready & weak; easily obliterated 13:30:27 Patient pain scale 0/10 ?. 13:30:50 IV patent on arrival in left forearm with 0.9% NaCl at O. 13:30:52 Lab results completed and on chart. 13:30:55 Right groin area was prepped with chlora-prep and draped in sterile fashion 13:30:56 Alarms reviewed by R. N. 13:30:57 Sharps counted by scrub and verified by R.N. 13:30:58 --------ALL STOP TIME OUT------ 13:30:58 Final Timeout: patient, procedure, and site verified with staff and physician. All members of the team are in agreement. 13:31:00 Right groin site verified by team. 13:31:04 Physical assessment completed. ASA score P 2 - A patient with mild systemic disease as per Akin Townsend MD. 13:31:07 Sedation plan: IV Moderate Sedation Medication:Versed, Fentanyl 13:32:38 Versed 1 mg I.V. was administered by Alexsandra Sultana RN; for sedation; 13:32:44 Fentanyl 50 mcg I.V. was administered by Alexsandra Sultana RN; for sedation; 13:32:54 Zero performed for pressure channel P1 13:35:04 Use device set Femoral Dx 13:35:06 Tegaderm 4 x 4 (1626W) opened to sterile field. 13:35:07 PERCUTANEOUS ENTRY 19GA needle opened to sterile field. 13:35:11 ACIST Manifold (36362) opened to sterile field. 13:35:12 ACIST Hand Control (39277) opened to sterile field. 13:35:13 ACIST Syringe (32040) opened to sterile field. 13:35:14 Bag Decanter () opened to sterile field. 13:35:14 Medline Cath Pack ([id number]) opened to sterile field. 13:35:15 DIAGNOSTIC WIRE .035 260cm J wire (875313) opened to sterile field. 13:35:18 DIAGNOSTIC Multipack 5Fr catheter set (IC7687) opened to sterile field. 13:35:19 SHEATH Prelude 5Fr 0.035 (LIN-9G-07-035) opened to sterile field. 13:36:27 Procedure started. 13:36:33 Local anesthetic to right femoral artery with Lidocaine 2% by Akin Townsend MD.INITIAL ACCESS ONLY 13:39:04 A 5 Fr sheath was inserted into the Right Femoral vein 13:39:28 Patient Weight : 211.64 lbs 13:39:34 Patient Height : 72 inches 13:40:04 Lab Result : BUN 32 mg/dl 13:40:04 Lab Result : Creatinine 1.5 mg/dl 13:40:04 Lab Result : Hemoglobin 15.8 g/dl 13:40:04 Lab Result : Platelets 79 10^3/l 13:40:29 A 5 Fr sheath was inserted into the Right Femoral artery 13:40:35 A MULTIPACK JL 4.0 5Fr catheter was advanced over the wire and used for Procedure. 13:41:32 Catheter exchanged over wire. 13:41:50 A DIAGNOSTIC JL 5 5Fr catheter ([id number]) was advanced over the wire and used for Procedure. 13:43:56 LCA angiography performed. 13:46:00 Catheter exchanged over wire. 13:46:08 A MULTIPACK 3DRC 5Fr catheter was advanced over the wire and used for Procedure. 13:46:54 RCA angiography performed. 13:47:52 Catheter exchanged over wire. 13:47:56 A MULTIPACK Pigtail 5 Fr catheter was advanced over the wire and used for Procedure. 13:49:26 LV angiography performed. 13:49:32 LV gram done using BLACKWELL 13:49:49 EF : 15 % 13:50:11 LV hemodynamics recorded. 13:50:16 Injector settings: Ml/sec: 15, Volume: 30, 13:51:19 Catheter exchanged over wire. 13:51:33 EXOSEAL 5Fr (EX500) opened to sterile field. 13:52:05 Sheath removed intact; hemostasis achieved with Exoseal to the Right Femoral artery. 13:52:10 Sheath removed intact; hemostasis achieved with Manual Compression to the Right Femoral vein. 13:52:54 Procedure ended.(Physican Out) 13:53:11 Fluoroscopy time 02.50 minutes. 13:54:19 Fluoroscopy dose: 889 mGy 13:54:19 Flurop Dose total: 889 13:54:22 Contrast amount:Isovue 300 75ml. 13:54:24 Sharps counted by scrub and verified by R.N. 13:54:26 Insertion/operative site no bleeding no hematoma. 13:55:18 Post-op/insertion site Right Femoral artery dressed using a 4 x 4 and Tegaderm. 13:56:24 Post Procedure Pulses reassessed and unchanged 13:56:26 Post-procedure physical assessment completed. ASA score P 2 - A patient with mild systemic disease as per Akin Townsend MD. 13:56:29 Post procedure rhythm: unchanged. 13:56:31 Estimated blood loss: 10 ml 13:56:33 Post procedure instruction explained to patient.Patient verbalizes understanding. 13:56:33 Patient needs reinforcement of post procedure teaching. 13:57:22 Procedure and supply charges have been captured, reviewed, submitted and are correct. 13:57:30 Procedure Complication : No complications 13:57:58 SHEATH Prelude 5Fr 0.035 (BQJ-3U-74-035) opened to sterile field. 13:59:12 Vital chart was stopped 13:59:13 See physician's report for complete and final results. 13:59:28 Report given to Pre/Post Procedure Room. 13:59:31 Patient transfered to Pre/Post Procedure Room with Stretcher. 13:59:34 Procedure ended. 13:59:34 Full Disclosure recording stopped 13:59:38 End room use (Document Last) Device Usage Item Name Manufacture Quantity Catalog Number Hospital Part Current M inimal Lot# / Charge Number Stock Stock Serial# Code Tegaderm 4 x 4 3M 1 [id number] 5 (1626W) PERCUTANEOUS [employer] 1 [id number] 611368 098512 5 ENTRY 19GA needle ACIST Manifold Acist 1 67659 883854 666800 784450 5 (41018) [employer] ACIST Hand Acist 1 78106 381618 243960 642898 5 Control (00977) [employer] ACIST Syringe Acist 1 00594 268632 602102 682909 2 0 (90799) [employer] Bag Decanter Microtek 1 318269 25073 628747 5 () Medical Inc. Medline Cath Cardinal 1 [id number] 718726 92605 114017 5 Pack Health ([id number]) DIAGNOSTIC WIRE St Thong 1 424778 635331 609819 098642 3 0 .035 260cm J wire (218052) DIAGNOSTIC Cardinal 1 OQ3803 219603 81481 810397 3 0 Multipack 5Fr Health catheter set ([id number]) SHEATH Prelude Merit 2 JAE-3E-62-035 750965 876831 972453 5 5Fr 0.035 Medical (QOR-8P-23035) MULTIPACK JL Cardinal 1 [id number] 5 4.0 5Fr Health catheter DIAGNOSTIC JL 5 Cardinal 1 [id number] 822957 680183 121117 5 5Fr catheter Health ([id number]) MULTIPACK 3DRC Cardinal 1 287394 5 5Fr catheter Health MULTIPACK Cardinal 1 164518 5 Pigtail 5 Fr Health catheter EXOSEAL 5Fr Cardinal 1 EX500 155926 174070 692296 1 0 (EX500) Health Signature Audit [place] Stage Time Signature Unsigned Intra-Procedure 09/28/2017 Leonard Jenkins 2:00:20 PM RT(R) Signatures Monitor : Leonard Jnekins RT Signature : Date : Time : [address] [address]
[~2017-09-28 10:53] MED LIST changes: +COREG12.5 MG PO; +ERYTHROMYCIN OPT1 GM OP; +OCUFLOX 0.3 % OP5 ML RIGHT EYE; +PREDNISOLONE 110 ML EACH EYE; +REFRESH TEARS15 ML EACH EYE; +SYNTHROID25 MCG PO; +VALTREX500 MG PO; +ZYLOPRIM100 MG PO
[2017-09-28 11:17] VITALS: BP 98/74; Ht 182.9 cm; Wt 94.5 kg
[2017-09-28 11:44] LABS: ANION GAP 10.8 mmol/L (8-16); CALCIUM 9.5 mg/dL (8.5-10.1); CARBON DIOXIDE 33.1 mmol/L (21.0-32.0); CREATININE - SERUM 1.5 mg/dL (0.6-1.3); INR 1.36 (0.85-1.17); POTASSIUM - SERUM 3.9 mmol/L (3.5-5.1); PROTIME 16.3 SECONDS (11.6-15.0)
[2017-09-28 11:57] LABS: BASOPHILS 0.3 % (0-2); HEMATOCRIT 48.3 % (42.0-54.0); HEMOGLOBIN 15.8 g/dL (13.5-17.5); IMMATURE GRANULOCYTES 0.3 % (0-5); LYMPHOCYTES 32.7 % (15-50); MCH 33.5 pg (26.0-34.0); MCHC 32.7 g/dL (31.0-37.0); MCV 102.3 fL (80.0-100.0); MEAN PLATELET VOLUME 10.6 fL (7.4-10.4); NEUTROPHILS 48.7 % (40-80); PLATELET COUNT 79 10x3/uL (130-400); RBC 4.72 10x6/uL (4.20-6.10); RDW 16.7 % (11.5-14.5); WBC 3.7 10x3/uL (4.8-10.8)
== END | disposition home or self-care (01) ==
LOC: D.CATH 10:53
PROVIDERS: Internal Medicine Cardiovascular Disease
DX: I42.9 Cardiomyopathy, unspecified (principal); I25.10 Atherosclerotic heart disease of native coronary artery without angina pectoris; I25.82 Chronic total occlusion of coronary artery; Z01.812 Encounter for preprocedural laboratory examination

== ENCOUNTER → 2019-02-02 12:28 | Outpatient (CLI) | payer MEDICARE, OTHER ==
[2017-09-28 11:17] VITALS: BMI 28.2
== END | disposition home or self-care (01) ==
LOC: D.HCCECHO 01-27 13:00 → D.HCCARDIO 01-27 13:00 → D.HCCECHO 12:28
PROVIDERS: ATTEND Internal Medicine Cardiovascular Disease
DX: I42.9 Cardiomyopathy, unspecified (principal)

== ENCOUNTER → 2020-09-01 21:00 | Outpatient (CLI) | payer MEDICARE, OTHER ==
[2017-09-28 11:17] VITALS: BMI 28.2
== END | disposition home or self-care (01) ==
LOC: D.LABREF 21:00
DX: M00.9 Pyogenic arthritis, unspecified (principal)

== ENCOUNTER → 2020-10-05 09:29 | Outpatient (CLI) | payer MEDICARE, OTHER ==
[2017-09-28 11:17] VITALS: BMI 28.2
--- NOTE | 2020-10-06 20:10 | ST ---
PATIENT:YARI MCKEON [place] MEDICAL RECORD: [id number] SEX: M LOCATION:[facility] ORDER #: ADMISSION DATE: 10/05/20 AGE OF PATIENT: 80 REFERRING PHYSICIAN: INTERPRETING PHYSICIAN: KIMMY BETH MD DATE OF SERVICE: 10/05/2020 NUCLEAR STRESS TEST GATED: Gated is markedly abnormal with decreased wall motion and thickening of the anterior spectrum, anterior apex, apical and inferoapical region. Overall, function is markedly reduced. Calculated EF is actually 11%. SPECT imaging: SPECT imaging shows extensive anterior scar extending from essentially the entire anterior wall including the apex and septal regions. This confirmed in the horizontal axis with an extensive anterior septal defect extending into the true apex regions with no significant reversibility. Vertical axis, vertical axis shows extensive fixed septal and apical septal defect. FINAL IMPRESSION: 1. Abnormal gated with abnormal motion. Reduced EF 11%. 2. Abnormal SPECT imaging with extensive anterior and septal scarring seen in all views. 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 No significant reversibility is seen here. Extensive scarring is severe. Defect size is large. Continue medical management of both his coronary artery disease and cardiomyopathy is recommended. TRANSINT:[id number] Voice Confirmation ID: [id number] DOCUMENT ID: [id number] KIMMY BETH MD at 2009 CC: [id number] DICTATION DATE: 10/05/20 1632 [employer] AND TRANSPORT MECHANIC: 10/06/20 0209 DEP CLI 10/05/20 [place] [id number] [place] [address]
== END | disposition home or self-care (01) ==
LOC: D.HCCECHO 09:29
PROVIDERS: ATTEND Internal Medicine Interventional Cardiology
DX: I25.10 Atherosclerotic heart disease of native coronary artery without angina pectoris (principal)